=== PATIENT | male | born 1935 | race Hispanic/Latino ===

== ENCOUNTER 2017-05-03 15:12 | Outpatient (CLI) | payer MEDICARE, OTHER ==
--- NOTE | 2017-05-03 20:21 | ULT ---
CAROTID DOPPLER: 05/03/17 Ultrasound doppler study performed with extracranial carotid arteries. Color doppler with spectral a nalysis and velocity recordings obtained. HISTORY: History of stenosis. Comparison made carotid duplex study of 12/04/15. That exam revealed increased velocities in the right ICA at 177 cm/s. FINDINGS: Ultrasound images show diffuse intimal thickening and moderate echogenic plaque throughout both extr acranial carotid systems, more prominent in the right bulb and proximal ICA. Velocities in the right ICA recorded at 112 cm/s today which does not indicate hemodynamically sign ificance. Normal velocities in the left ICA recorded at 73 cm/s systolic. Vertebrals show antegrade flow. IMPRESSION: Intimal thickening and moderate echogenic plaque seen bilaterally. No evidence of hemodynamically si gnificant stenosis identified on today's velocity studies. POS: [facility]
== END 2017-05-03 15:13 | disposition home or self-care (01) ==
LOC: ULT 15:12
PROVIDERS: ATTEND Psychiatry & Neurology Neurology
DX: I65.22 Occlusion and stenosis of left carotid artery (principal); I25.119 Atherosclerotic heart disease of native coronary artery with unspecified angina pectoris; G44.1 Vascular headache, not elsewhere classified
CPT/HCPCS: 93880

== ENCOUNTER 2017-05-09 04:06 | Inpatient (IN) | payer MEDICARE, OTHER ==
[2017-05-09 04:52] LABS: #Eosinphils 0.2 thou/uL (0.0-0.7); #Lymphocytes 0.9 thou/uL (1.20-3.40); #Monocytes 0.7 thou/uL (0.11-0.59); #Neutrophils 3.1 thou/uL (1.40-6.50); %Basophils 0.9 % (0.0-1.0); %Eosinophils 3.7 % (0.0-10.0); %Lymphocytes 18.7 % (21.0-51.0); %Monocytes 13.7 % (0.0-10.0); Hematocrit 38.9 % (42.0-52.0); Mean Platelet Volume 6.6 fL (7.4-10.4); Red Blood Cell (RBC) Count 3.99 mill/uL (4.70-6.10)
[2017-05-09 05:10] LABS: ALT (SGPT) 24 U/L (8-55); AST (SGOT) 36 U/L (5-34); Alkaline Phosphatase 63 U/L (40-150); Anion Gap 6 mmol/L (10-20); BUN (Urea Nitrogen) 6 mg/dL (8.4-25.7); Bilirubin, Total 0.8 mg/dL (0.2-1.2); CK (CPK) 147 U/L (30-200); Calc. Creatinine Clearance 0 mL/min (70-130); Calcium 9.4 mg/dL (7.8-10.44); Carbon Dioxide 26 mmol/L (23-31); Chloride 96 mmol/L (98-107); Estimated GFR-MDRD 52; Globulin 2.5 g/dL (2.4-3.5); Protein, Total 6.2 g/dL (5.8-8.1)
[2017-05-09 06:03] LABS: Bilirubin Negative (Negative); Blood, Urine Negative (Negative); Glucose, Urine (Dipstick) Negative (Negative); Ketone, Urine Negative (Negative); Nitrite Negative (Negative); Protein, Urine (Dipstick) Negative (Neg-Trace); Urobilinogen 0.2 mg/dL (0.2-1.0)
[2017-05-09 07:04] LABS: Sodium, Urine 35 mmol/L (Not Available)
[2017-05-09] MEDS ORDERED: HYDROcodone/Acetaminophen 5/325 mg Tablet PO PRN (09:43)
[2017-05-09] MEDS ORDERED: Ondansetron HCl/PF 4 MG/2 ML Vial IVP PRN (09:43)
[2017-05-09] MEDS ORDERED: Calcium Carbonate 500 MG ChewTAB PO PRN (09:43)
[2017-05-09] MEDS ORDERED: Acetaminophen 325 MG TAB PO PRN (09:43)
[2017-05-09] MEDS ORDERED: Zolpidem Tartrate 5 MG TAB PO PRN (09:43)
[2017-05-09] MEDS ORDERED: Guaifenesin DM 100-10/5 ML UDCUP PO PRN (09:43)
[2017-05-09] MEDS ORDERED: Milk Of Magnesia 30 ML UDCUP PO PRN (09:43)
[2017-05-09] MEDS ORDERED: Sodium Chloride 0.9% 1,000 ML IV SCH (09:45)
[2017-05-09] MEDS ORDERED: Ferrous Sulfate 325 MG TAB PO SCH (10:00)
[2017-05-09] MEDS ORDERED: Cyclobenzaprine 10 MG TAB PO PRN (10:08)
--- NOTE | 2017-05-09 10:19 | CT ---
PRELIMINARY REPORT/[facility]/EMERGENCY AFTER HOURS PROCEDURE: EXAM: CT Angiography Abdomen and Pelvis With Runoff to the Lower Extremities With Intravenous Contrast CLINICAL HISTORY: 82 years old, male; Pain; Abdominal pain; Localized; Lower; Prior surgery; Patient HX: Er 3; 82 yo m . Pmh cad S/P cabg x5 vz, pvd S/P stent in right leg, and throat ca. Presents with calf pain and cramping upon exertion for 4 days. Reports subjective fever/chills during same time course. Bruise l jr lesion presented on right medial heel near the start of calf pain. Was diagnosed with diverticul itis 4 days ago by pcp. Started on abx and clear liquid diet. Also reports difficulty urinating and const ipation. Constipation, TECHNIQUE: Axial computed tomographic angiography images of the abdomen, pelvis and lower extremities with intr avenous contrast using CT angiography protocol. Coronal reformatted images were created and reviewed. CONTRAST: 100 mL of isovue 370 administered intravenously. COMPARISON: No relevant prior studies available. FINDINGS: Lower thorax: No acute findings. VASCULATURE: Aorta: Infrarenal aortic aneurysm sac measuring up to 5.3 x 4.2 cm with aortobiiliac stent graft. Mo derate diffuse atherosclerotic changes. No dissection. Celiac trunk and mesenteric arteries: Calcified plaque in the proximal celiac artery resulting in mo derate to severe stenosis. Diffuse mostly calcified plaque along the SMA with moderate to severe marlen nosis proximally. Renal arteries: Bilateral renal artery origin calcifications with mild stenosis, greater on the left . Right iliac arteries: No acute findings. No occlusion or significant stenosis. Right femoral/popliteal arteries: Diffuse right femoral artery atherosclerotic changes with multifoc al mild to moderate stenoses. Occlusion of the popliteal artery. Right calf/foot arteries: No definite flow seen within the right anterior tibial artery with minimal intermittent opacification along the dorsalis pedis. Reconstitution of a diminutive posterior tibia l artery with multifocal calcifications and luminal irregularities and opacification through the ank le. Reconstitution of the peroneal artery with multifocal luminal irregularities opacification to t he level of the ankle. Left iliac arteries: No acute findings. No occlusion or significant stenosis. Left femoral/popliteal arteries: Diffuse femoropopliteal atherosclerotic changes with multifocal mil d to moderate stenoses. Left calf/foot arteries: Occlusion of the left anterior tibial artery proximally with reconstitution of the dorsalis pedis distally. Occlusion of the posterior tibial artery with minimal intermittent opacification distally, not visualized beyond the hindfoot. Patient peroneal artery with luminal irr egularities. ABDOMEN: Liver: Unremarkable. Gallbladder and bile ducts: Cholelithiasis. Distended gallbladder. Dilated common bile duct measurin g up to 13 mm. Mild central intrahepatic biliary ductal dilatation. Pancreas: Mild ductal prominence in the head and neck. Relatively atrophic. Otherwise unremarkable. Spleen: Normal. Adrenals: Normal. Kidneys and ureters: Unremarkable. Stomach and bowel: Distal gastrectomy. Moderate amount of stool throughout the colon. Otherwise unre markable. No focal inflammatory changes or evidence of obstruction. Appendix: No findings to suggest acute appendicitis. PELVIS: Bladder: Normal. No mass. Reproductive: Unremarkable. ABDOMEN, PELVIS and LOWER EXTREMITIES: Intraperitoneal space: Normal. No significant fluid collection. No free air. Bones/joints: No acute fracture. No dislocation. Soft tissues: Unremarkable. Lymph nodes: Unremarkable. No enlarged lymph nodes. IMPRESSION: 1. No definite acute findings. 2. Cholelithiasis. Biliary ductal dilatation. 3. Occluded right popliteal artery with severe atherosclerotic changes of both lower legs as above. The findings were verbally communicated via telephone conference with MERLE PIERSON at 6:36 AM C DT on 05/09/2017. Thank you for allowing us to participate in the care of your patient. Dictated and Authenticated by: Narinder Schultz MD 05/09/2017 6:42 AM Central Time ([place] \T\ [place]) FINAL REPORT CT ANGIOGRAM OF CHEST CT ANGIOGRAM OF ABDOMEN CT ANGIOGRAM OF PELVIS BILATERAL LOWER EXTREMITY RUNOFF: Date: 05/09/17 HISTORY: CABG x5. Peripheral vascular disease. Right leg stent. Throat cancer. Calf pain and cramping upon ex ertion x4 days. Diverticulitis. COMPARISON: 01/11/17. TECHNIQUE: Chest, abdomen, and pelvic CT angiogram, as well as bilateral lower extremity runoff performed in th e axial plane. Sagittal and coronal three-dimensional reformatted images are submitted for interpret ation. FINDINGS: This report is in agreement with the preliminary report from [facility]. There is no evidence of aortic di ssection. There is an endovascular stent (aortobiiliac) which is described in the preliminary report by [facility]. Comparison made with prior examination does not demonstrate any significant change. There is stable atherosclerotic disease involving the abdominal vasculature, pelvic vasculature, as well a s bilateral lower extremity vessels. There is occlusion of the right popliteal artery. Additional ar eas of significant vascular stenosis in the right and left lower extremity arterial system is noted and has been described in the preliminary report by Sandhy[facility]. Gallbladder is distended with evidence of cholelithiasis. Common bile duct is distended, measuring 13.0 mm. There is mild pancreatic ductal pr ominence. Moderate amount of fecal material in the colon, nonspecific. POS: [facility]
[2017-05-09] MEDS ORDERED: Ibuprofen 600 MG TAB PO SCH (10:30)
[2017-05-09] MEDS ORDERED: Cyclobenzaprine 10 MG TAB PO SCH (10:30)
--- NOTE | 2017-05-09 10:39 | HP ---
ADMITTING PHYSICIAN: Calixto Germain M.D. CHIEF COMPLAINT: Bilateral leg pain. HISTORY OF PRESENT ILLNESS: The patient is a pleasant 82-year-old gentleman with history of coronar y artery disease, peripheral vascular disease and throat cancer. The patient and his report th at approximately 4 days ago he began to experience cramping and pain in his calves bilaterally. The y do report that he has been participating in physical rehab including walking on treadmill and usin g a stationary bike as well as other various exercises. He does also report subjective chills and c onstitutional symptoms consisting with possible viral infection. He denies chest pain, shortness of breath, nausea, vomiting. He does report having chronic constipation. He has recently been treate d with antibiotics for diverticulitis. No other complaints at this time. REVIEW OF SYSTEMS: The following complete review of systems was negative, unless otherwise mentioned in the HPI or below: Constitutional: Weight loss or gain, ability to conduct usual activities. Skin: Rash, itching. Eyes: Double vision, pain. ENT/Mouth: Nose bleeding, neck stiffness, pain, tenderness. Cardiovascular: Palpitations, dyspnea on exertion, orthopnea. Respiratory: Shortness of breath, wheezing, cough, hemoptysis, fever or night sweats. Gastrointestinal: Poor appetite, abdominal pain, heartburn, nausea, vomiting, constipation, or diarrhea. Genitourinary: Urgency, frequency, dysuria, nocturia. Musculoskeletal: Pain, swelling. Neurologic/Psychiatric: Anxiety, depression. Allergy/Immunologic: Skin rash, bleeding tendency. PAST MEDICAL HISTORY: Hypothyroidism, coronary artery disease, peripheral vascular disease, BPH, dy slipidemia, hypertension, esophageal CA, TIA. PAST SURGICAL HISTORY: Significant for coronary artery bypass graft x5, left foot surgery, left wri st surgery, abdominal stent placement, appendectomy, abdominal aneurysm repair, pacemaker placement. PSYCHIATRIC HISTORY: Consistent with anxiety. SOCIAL HISTORY: Lives at home with his family. The patient denies alcohol use, drug use. No smoki ng. FAMILY HISTORY: Noncontributory to this case. ALLERGIES: No known drug allergies. HOME MEDICATIONS: Cranberry concentrate, aspirin 325 mg every day, iron 325 mg once a day, finaster yecenia 5 mg every day, tamsulosin 0.4 mg every day, gabapentin 300 mg daily, lisinopril 10 mg every day , vitamin D supplementation and levothyroxine 25 mg every day. LABORATORY/IMAGES: Chest CT shows no dissection, no aneurysm of the aorta. CTA of the abdomen show s aorta with runoff, severe chronic appearing vasculopathy with collateral flow distal to the obstru cted right popliteal and left peroneal vessels, no vascular leak or dissection. Chest CT shows aort a with no dissection, no aneurysm. LABS: Urine sodium 35, urine creatinine less than 20. The urine is yellow and clear with leukocyte s negative, the urine nitrite negative, urine ketones negative. CPK 147. BMP shows sodium of 124, potassium 4.2, chloride 96, CO2 26, BUN 6, creatinine 1.33 with a glucose of 97, AST 36, ALT 24. CB C shows a white count of 5.0, hemoglobin 12.9, hematocrit 38.9, platelets 122. ASSESSMENT AND PLAN: 1. Hypoosmolality and hyponatremia. 2. Myalgias. 3. Diverticulitis. 4. Viral syndrome. PLAN: The patient will be admitted. We will treat him with normal saline and follow serial labs fo r improvement of his hyponatremia. We will add muscle relaxers and anti-inflammatories for the myal gias as patient's CTA with runoff is essentially negative. We will control the patient's blood pres sure starting with his home regimen and make changes as needed.
--- NOTE | 2017-05-09 11:12 | CON ---
DATE OF CONSULTATION: 05/09/2017 REASON FOR CONSULTATION: Hyponatremia. HISTORY OF PRESENT ILLNESS: This is a very pleasant 82-year-old gentleman who presented to the hospital with bilateral leg pain. The patient was noted to have a sodium of 124. The patient denies any nausea or vomiting, but has had abdominal pain and has been treated for diverticulitis. The patient has had no hyponatremia before and denied drinking excessively. PAST MEDICAL HISTORY: Hypothyroidism, coronary artery disease, peripheral vascular disease, BPH, hyperlipidemia, hypertension, esophageal cancer, TIA. PAST SURGICAL HISTORY: History of CABG, left foot surgery, appendectomy, abdominal stent, pacemaker. SOCIAL HISTORY: No alcohol or drug use. FAMILY HISTORY: Negative for ESRD. HOME MEDICATIONS: List reviewed. HOSPITAL MEDICATIONS: List reviewed. ALLERGIES: Reviewed. REVIEW OF SYSTEMS: Fifteen point review of systems was performed and negative except positives noted above. GENERAL: Weakness- HEAD: Headache- NECK: No swelling or lumps. NOSE: No epistaxis or discharge. EYES: No diplopia or pain. RESPIRATORY: Dyspnea- CARDIOVASCULAR: Chest pain- GASTROINTESTINAL: Nausea- /STAFF VETERINARIAN: Hematuria- MUSCULOSKELETAL: No joint pain. NEUROPSYCHIATIC SYSTEMS: No suicidal ideation. No ideation. SKIN: Denies any rash or ulcer. CONSTITUTIONAL: No fever or chills. PHYSICAL EXAMINATION: GENERAL: Patient is awake, alert. VITAL SIGNS: Afebrile, pulse 75, breathing at 16, blood pressure was 140/70. Awake, alert, in no acute distress. GENERAL APPEARANCE AND MENTAL STATUS: Fair. HEAD/NECK: Normocephalic. Atraumatic. EYES: EOMI. No deformity. EARS: Clear. No ulcers. NOSE: Intact. No lesions. MOUTH: Clear. No discharge. THROAT: Clear. No exudate. LUNGS: Clear. No crackles. CARDIAC: S1, S2. No rub. ABDOMEN: Benign. BS+. GENITALIA/RECTUM: Thompson absent. BACK/EXTREMITIES: Edema 0+ Ulcer- NEUROLOGICAL: Alert and motor intact. SKIN: Rash- Bruise- LYMPHATICS: Edema- Ulcer- LABORATORY: Sodium of 124, creatinine is 1.3. ASSESSMENT AND RECOMMENDATIONS: 1. Chronic kidney disease stage 3, stable. 2. Hyponatremia, could be syndrome of inappropriate antidiuretic hormone secretion due to malignancy. I would recommend fluid restriction stop IV fluids. We will recheck stat sodium as well as urine and serum osmolality. MTDD
[2017-05-09] MEDS ORDERED: Morphine 2 MG/ML SYRINGE SLOW IVP PRN ×2 (12:15→12:16)
[2017-05-09 12:26] LABS: Anion Gap 4 mmol/L (10-20); BUN (Urea Nitrogen) 7 mg/dL (8.4-25.7); Calc. Creatinine Clearance 38 mL/min (70-130); Calcium 9.3 mg/dL (7.8-10.44); Carbon Dioxide 29 mmol/L (23-31); Chloride 95 mmol/L (98-107); Estimated GFR-MDRD 54
[2017-05-09] MEDS: Lorazepam 0.5 MG TAB PO PRN (13:01)
[2017-05-09] MEDS ORDERED: ISOVUE-370 76%-LOCM 1 ML ONE (15:00)
[2017-05-09] MEDS ORDERED: hydrALAZINE 20 MG/ML VIAL SLOW IVP PRN (15:14)
[2017-05-09] MEDS ORDERED: Ibuprofen 600 MG TAB PO PRN (16:00)
--- NOTE | 2017-05-09 19:45 | CON ---
DATE OF CONSULTATION: 05/09/2017 HISTORY OF PRESENT ILLNESS: An 82-year-old gentleman that I have followed for peripheral arterial d isease for many years, the last being seen about 2 months ago. The patient had been complaining of constipation and abdominal discomfort and was referred to Dr. Mohan. He has had evidently started o n some antibiotics about a week ago that left him nauseated with inability to keep liquids down. He awakened this morning with inability to bear weight on his legs due to discomfort in both calves. He was seen in the emergency room, where a CT angiogram was obtained. He was noted to have sodium o f 124, which was not consistent with his prior sodium. Workup is being performed in that regards. The patient does complain of discomfort in his feet with walking, but up until the past week or two, he was doing rehabilitation on a daily basis, walking on a treadmill and was walking several blocks at this time with his . PAST MEDICAL HISTORY: Includes carotid artery disease, coronary artery disease, dyslipidemia, perip heral arterial disease, abdominal aortic aneurysm. PAST SURGICAL HISTORY: Includes vagotomy and antrectomy in 1968, lymph node dissection of the left neck and radiation therapy in 2002, appendectomy, tonsillectomy, previous heel surgery, atherectomy and [employer], left SFA and peroneal in 07/2010, stenting of his LAD in 2004, coronary bypass graft 2014, endovascular aneurysm repair in 2014, pacemaker 2016 and stent to circumflex in 2015. 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 PHYSICAL EXAMINATION: GENERAL: Alert, cooperative gentleman, in no distress. NECK EXAMINATION: High pitched right carotid bruit. CARDIAC EXAMINATION: Regular rate and rhythm, no murmurs. LUNGS: Clear to auscultation. ABDOMEN: Soft, nontender. EXTREMITIES: He has palpable femoral pulses with no palpable distal pulses. He has a good right po sterior tibial signal and the left peroneal signal consistent with his previous office examination. Feets are both warm with pink and capillary refill and pink toes. He does have some ecchymosis ethel ng the posterior aspect of both medial malleoli. His calves are soft. All compartments is being so ft with some mild tenderness to deep palpation posteriorly. ASSESSMENT AND PLAN: 1. Stable peripheral artery disease 2. Ecchymosis posterior to the medial malleolus with unchanged platelet count and no evidence of tr auma. 3. Hyponatremia. I agree with treatment of his hyponatremia; and hopefully, this will improve his extremity symptoms as I do not see any change in his peripheral arterial disease from prior examinations.
[2017-05-09] MEDS ORDERED: FLU VACC TS2017-18 (>65YR) 0.5 ML SYRINGE IM ONE (21:00)
[2017-05-09] MEDS: Amlodipine 10 MG TAB PO SCH (21:52)
[2017-05-09] MEDS: Finasteride 5 MG TAB PO SCH (21:53)
[2017-05-09] MEDS: Nortriptyline HCl 25 MG CAP PO SCH (21:54)
[2017-05-09] MEDS: Tamsulosin HCl 0.4 MG CAP PO SCH (21:54)
[2017-05-10 06:41] LABS: Anion Gap 9 mmol/L (10-20); BUN (Urea Nitrogen) 10 mg/dL (8.4-25.7); Calc. Creatinine Clearance 39 mL/min (70-130); Carbon Dioxide 24 mmol/L (23-31); Chloride 97 mmol/L (98-107); Estimated GFR-MDRD 55
[2017-05-10] MEDS: Aspirin 81 mg Enteric Coated Tablet PO SCH (08:17)
[2017-05-10] MEDS: Lisinopril 10 MG TAB PO SCH (08:17)
[2017-05-10] MEDS: Clopidogrel Bisulfate 75 MG TAB PO SCH (08:18)
[2017-05-10] MEDS: Ubidecarenone 50 MG CAP PO SCH (08:18)
[2017-05-10] MEDS: Cyanocobalamin (Vitamin B-12) 1,000 MCG TAB PO SCH (08:18)
[2017-05-10] MEDS ORDERED: Non-Formulary Item 1 EACH (Cyanocobalamin (Vitamin B-12) [Vitamin B-12] 1,000 MCG) PO SCH (09:00)
[2017-05-10] MEDS ORDERED: Non-Formulary Item 1 EACH (Ubidecarenone [Co Q-10] 200 MG) PO SCH (09:00)
[2017-05-10] MEDS ORDERED: Levothyroxine Sodium 25 MCG TAB PO SCH (09:00)
[2017-05-10] MEDS ORDERED: Lisinopril 5 MG TAB PO SCH (09:00)
--- NOTE | 2017-05-10 11:28 | PDOC.PN ---
- Subjective Encounter Start Date: 05/10/17 Encounter Start Time: 11:26 Patient seen at bedside. No overnight events. Still having mild cramps. - Objective Resuscitation Status: Resuscitation Status FULL:Full Resuscitation MAR Reviewed: Yes Vital Signs & Weight: Vital Signs (12 hours) Temp Pulse Resp BP BP Pulse Ox 05/10/17 08:17 149/72 H 05/10/17 07:50 97.8 F 76 16 149/72 H 97 05/10/17 04:00 98.8 F 65 18 125/63 95 Weight Admit Weight 131 lb Weight 132 lb I&O: 05/09/17 05/10/17 05/11/17 06:59 06:59 06:59 Intake Total 880 Output Total 1575 Balance -695 Result Diagrams: 05/09/17 04:36 05/10/17 05:43 Phys Exam - Physical Examination Constitutional: NAD HEENT: moist MMs Neck: no JVD Respiratory: no rales Cardiovascular: RRR Gastrointestinal: soft Musculoskeletal: pulses present Neurological: moves all 4 limbs Psychiatric: A&O x 3 Deviation from normal: Pulses present, mild discoloration around medial malleolus Dx/Plan (1) Hyponatremia Code(s): E87.1 - HYPO-OSMOLALITY AND HYPONATREMIA Status: Acute (2) PVD (peripheral vascular disease) Code(s): I73.9 - PERIPHERAL VASCULAR DISEASE, UNSPECIFIED Status: Chronic (3) CAD (coronary artery disease) Code(s): I25.10 - ATHSCL HEART DISEASE OF [place] CORONARY ARTERY W/O ANG PCTRS Status: Chronic (4) BPH (benign prostatic hyperplasia) Code(s): N40.0 - BENIGN PROSTATIC HYPERPLASIA WITHOUT LOWER URINRY TRACT SYMP Status: Chronic - Plan cont current plan of care, out of bed/ambulate * Continue with fluid restriction. Monitor Na+ levels. Appreciate Nephrology input * Restart Statin and Coq-10 * Appreciate [facility] input. Stable PAD. Pain possibly from Na+ levels. * Daily labs * Transfer to [facility]
--- NOTE | 2017-05-10 17:21 | PRG ---
DATE OF SERVICE: 05/10/2017 SUBJECTIVE: This 82-year-old gentleman being seen for acute kidney injury and hypernatremia. Patie nt denies any nausea, vomiting or chest pain. PHYSICAL EXAMINATION: GENERAL: Patient is awake, alert. VITAL SIGNS: Afebrile, pulse 72, breathing at 16, blood pressure 133/61. GENERAL APPEARANCE AND MENTAL STATUS: Fair. HEAD/NECK: Normocephalic. Atraumatic. EYES: EOMI. No deformity. EARS: Clear. No ulcers. NOSE: Intact. No lesions. MOUTH: Clear. No discharge. THROAT: Clear. No exudate. LUNGS: Clear. No crackles. CARDIAC: S1, S2. No rub. ABDOMEN: Benign. BS+. GENITALIA/RECTUM: Thompson absent. BACK/EXTREMITIES: Edema 0+ Ulcer- NEUROLOGICAL: Alert and motor intact. SKIN: Rash- Bruise- LYMPHATICS: Edema- Ulcer- LABORATORY DATA: Show sodium 126. ASSESSMENT AND PLAN: 1. Hyponatremia due to syndrome of inappropriate antidiuretic hormone secretion. Continue fluid re striction. 2. Hypertension, stable. 3. Medications based on glomerular filtration rate are appropriate. No indication for hypertonic s nathaly. We will follow the patient closely. 4. Chronic kidney disease stage 3, stable.
[2017-05-10] MEDS: Amlodipine 10 MG TAB PO SCH (20:24)
[2017-05-10] MEDS: Finasteride 5 MG TAB PO SCH (20:25)
[2017-05-10] MEDS: Nortriptyline HCl 25 MG CAP PO SCH (20:25)
[2017-05-10] MEDS: Tamsulosin HCl 0.4 MG CAP PO SCH (20:25)
[2017-05-10] MEDS: Lorazepam 0.5 MG TAB PO PRN (20:25)
[2017-05-11] MEDS ORDERED: Levothyroxine Sodium 25 MCG TAB PO SCH (06:00)
[2017-05-11 06:50] LABS: ALT (SGPT) 19 U/L (8-55); AST (SGOT) 24 U/L (5-34); Alkaline Phosphatase 63 U/L (40-150); Anion Gap 9 mmol/L (10-20); BUN (Urea Nitrogen) 16 mg/dL (8.4-25.7); Bilirubin, Total 0.6 mg/dL (0.2-1.2); Calc. Creatinine Clearance 32 mL/min (70-130); Calcium 9.3 mg/dL (7.8-10.44); Carbon Dioxide 27 mmol/L (23-31); Chloride 97 mmol/L (98-107); Estimated GFR-MDRD 39; Globulin 2.5 g/dL (2.4-3.5); Protein, Total 5.9 g/dL (5.8-8.1)
[2017-05-11] MEDS: Clopidogrel Bisulfate 75 MG TAB PO SCH (09:36)
[2017-05-11] MEDS: Ubidecarenone 50 MG CAP PO SCH (09:37)
[2017-05-11] MEDS: Aspirin 81 mg Enteric Coated Tablet PO SCH (09:37)
[2017-05-11] MEDS: Cyanocobalamin (Vitamin B-12) 1,000 MCG TAB PO SCH (09:37)
[2017-05-11] MEDS: Lisinopril 10 MG TAB PO SCH ×3 (09:38→09:47)
--- NOTE | 2017-05-11 10:16 | PDOC.PN ---
- Subjective Encounter Start Date: 05/11/17 Encounter Start Time: 10:14 Patient seen at bedside. No overnight events. No new complaints. - Objective Resuscitation Status: Resuscitation Status FULL:Full Resuscitation MAR Reviewed: Yes Vital Signs & Weight: Vital Signs (12 hours) Temp Pulse Resp BP BP BP BP 05/11/17 09:47 97/55 L 05/11/17 09:44 101/52 L 97/55 L 05/11/17 08:00 97.6 F 80 16 95/54 L 05/11/17 04:00 99.0 F 80 16 104/56 L Pulse Ox 05/11/17 09:47 05/11/17 09:44 05/11/17 08:00 95 05/11/17 04:00 95 Weight Admit Weight 131 lb Weight 144 lb 1.6 oz I&O: 05/10/17 05/11/17 05/12/17 06:59 06:59 06:59 Intake Total 880 1040 Output Total 1575 1225 Balance -695 -185 Result Diagrams: 05/09/17 04:36 05/11/17 05:56 Phys Exam - Physical Examination Constitutional: NAD HEENT: moist MMs Neck: no JVD Respiratory: no rales Cardiovascular: no significant murmur Gastrointestinal: soft Musculoskeletal: pulses present Neurological: moves all 4 limbs Psychiatric: A&O x 3 Dx/Plan (1) Hyponatremia Code(s): E87.1 - HYPO-OSMOLALITY AND HYPONATREMIA Status: Acute (2) PVD (peripheral vascular disease) Code(s): I73.9 - PERIPHERAL VASCULAR DISEASE, UNSPECIFIED Status: Chronic (3) CAD (coronary artery disease) Code(s): I25.10 - ATHSCL HEART DISEASE OF [place] CORONARY ARTERY W/O ANG PCTRS Status: Chronic (4) BPH (benign prostatic hyperplasia) Code(s): N40.0 - BENIGN PROSTATIC HYPERPLASIA WITHOUT LOWER URINRY TRACT SYMP Status: Chronic - Plan cont current plan of care, out of bed/ambulate * Continue with fluid restriction. * Muscle cramps and lower extremity pain was most likely secondary to hyponatremia. * F/U with nephrology next week. (BMP on Tuesday) *
--- NOTE | 2017-05-11 12:09 | PRG ---
DATE OF SERVICE: 05/11/2017 SUBJECTIVE: An 82-year-old gentleman being seen for hyponatremia. The patient denies any nausea, vomiting or chest pain. PHYSICAL EXAMINATION: GENERAL: Patient is awake, alert. VITAL SIGNS: Afebrile, pulse 80, breathing at 16, blood pressure 101/52. OBJECTIVE: See above. Awake, alert, in no acute distress. GENERAL APPEARANCE AND MENTAL STATUS: Fair. HEAD/NECK: Normocephalic. Atraumatic. EYES: EOMI. No deformity. EARS: Clear. No ulcers. NOSE: Intact. No lesions. MOUTH: Clear. No discharge. THROAT: Clear. No exudate. LUNGS: Clear. No crackles. CARDIAC: S1, S2. No rub. ABDOMEN: Benign. BS+. GENITALIA/RECTUM: Thompson absent. BACK/EXTREMITIES: Edema 0+ Ulcer- NEUROLOGICAL: Alert and motor intact. SKIN: Rash- Bruise- LYMPHATICS: Edema- Ulcer- LABORATORY: Sodium is 129, creatinine 1.6. ASSESSMENT AND RECOMMENDATIONS: 1. Acute kidney injury with chronic kidney disease, recheck labs Tuesday decrease MADELINE to 5 mg.. 2. Hyponatremia due to excessive fluid intake and syndrome of inappropriate antidiuretic hormone secretion, stable. 3. Hypertension, stable. 4. Medications based on GFR are appropriate. 5. Hypertension. Decrease Lisinopril to 5 mg. As BP is less than 100. Would recommend decreasing the lisinopril to 5 mg daily. MTDD
[2017-05-11 12:46] VITALS: BP 101/57; TEMP 98
--- NOTE | 2017-05-11 16:49 | DIS ---
DATE OF ADMISSION: 05/09/2017 DATE OF DISCHARGE: 05/11/2017 DISCHARGE DISPOSITION: Home. DISCHARGE FOLLOWUP: With Dr. Clements in 1 week. He is to have blood work on 05/13/2017. DISCHARGE DIAGNOSES: 1. Bilateral leg pain and cramping, secondary to hyponatremia. 2. Hyponatremia, secondary to syndrome of inappropriate antidiuretic hormone secretion. 3. Hypertension. 4. History of peripheral artery disease. 5. Hypothyroidism. 6. Benign prostatic hypertrophy. DISCHARGE MEDICATIONS: 1. Aspirin 81 mg p.o. daily. 2. Plavix 75 mg p.o. daily. 3. B12 supplements. 4. Ferrous sulfate 325 mg p.o. every 7 days. 5. Finasteride 5 mg p.o. at bedtime. 6. Gabapentin 300 mg p.o. daily. 7. Lorazepam 0.5 mg p.o. b.i.d. 8. Zestril 5 mg p.o. daily. 9. Rosuvastatin 20 mg p.o. daily. 10. Tamsulosin 0.4 mg p.o. at bedtime. 11. Amlodipine 5 mg p.o. at bedtime. 12. Please note that lisinopril has been decreased to 5 mg p.o. daily. INPATIENT CONSULTATIONS: 1. Dr. Watt, Cardiovascular Surgery. 2. Dr. Clements, Nephrology. INPATIENT RADIOGRAPHIC EXAMINATIONS: 1. Aorta with runoff CTA, which revealed no acute findings. However, he did have an occluded right popliteal artery with severe atherosclerotic changes as well as reconstitution of a diminutive post erior tibial artery with multifocal calcifications, luminal irregularities, and opacification throug hout the ankle. 2. CT, dissection, which revealed no definitive acute findings. BRIEF HOSPITAL COURSE: Mr. Francisco Peoples is an 82-year-old male with a history of coronary artery d isease and peripheral vascular disease, who presented to the emergency room complaining of bilateral leg pain. The patient was then subsequently admitted to the telemetry floor where he was monitored . Upon routine evaluation, it was noted that the patient had a sodium of 124. At that time, the pa pollo was evaluated by Nephrology, who stated this is most likely secondary to syndrome of inappropr iate antidiuretic hormone or SIADH. He was placed on fluid restriction and his sodium improved. In regard to his claudication-like symptoms, he was evaluated by Vascular Surgery, who stated that his peripheral vascular disease and peripherial arterial disease are stable and his symptoms are most l ikely secondary to metabolic abnormalities. The patient's sodium did improve, and as his sodium imp roved, his symptoms began to improve as well. He does not walk with any kind of discomfort. His so dium is 129. He has been cleared by Nephrology for discharge later today. We will follow up with nicole wynn in 2 days and then a subsequent followup in the diesel motor mechanic's office later next week. The patient was advised to have a fluid restriction of 2 liters per day. He is feeling much better and he is clinically appropriate for discharge home, and will be discharged home later today in stable c ondition. DISCHARGE DIET: Heart healthy. ACTIVITY: As tolerated. RESTRICTIONS: He does have fluid restriction of 2 liters per day. CODE STATUS: Full code. ALLERGIES: No known drug allergies. I explained all of these to the patient at bedside. He is agreeable to the plan of discharge. All questions have been answered. The patient's total discharge time 34 minutes.
[2017-05-12] MEDS ORDERED: Lisinopril 5 MG TAB PO SCH (09:00)
== END 2017-05-11 15:15 | disposition home or self-care (01) | DRG 645 ==
LOC: ERS 04:06 → ERHOLD 07:04 → 2NO 11:17
PROVIDERS: ADMIT Family Medicine; ATTEND Family Medicine
DX: E22.2 Syndrome of inappropriate secretion of antidiuretic hormone (principal); N18.3 Chronic kidney disease, stage 3 (moderate); I73.9 Peripheral vascular disease, unspecified; I12.9 Hypertensive chronic kidney disease with stage 1 through stage 4 chronic kidney disease, or unspecified chronic kidney disease; E03.9 Hypothyroidism, unspecified; N40.0 Benign prostatic hyperplasia without lower urinary tract symptoms; Z95.1 Presence of aortocoronary bypass graft; Z95.0 Presence of cardiac pacemaker; Z86.73 Personal history of transient ischemic attack (TIA), and cerebral infarction without residual deficits; E78.5 Hyperlipidemia, unspecified; I25.10 Atherosclerotic heart disease of native coronary artery without angina pectoris
CPT/HCPCS: 36415; 71275; 75635; 80048; 80053; 81003; 82550; 82570; 83735; 83930; 83935; 84300; 85025; 93005; 96360; 96361; A4216

== ENCOUNTER 2017-07-14 17:01 | Emergency (ER) | payer MEDICARE, OTHER ==
[2017-07-14 18:05] LABS: #Eosinphils 0.2 thou/uL (0.0-0.7); #Lymphocytes 0.9 thou/uL (1.20-3.40); #Monocytes 0.3 thou/uL (0.11-0.59); #Neutrophils 2.1 thou/uL (1.40-6.50); %Basophils 0.6 % (0.0-1.0); %Eosinophils 4.9 % (0.0-10.0); %Lymphocytes 25.9 % (21.0-51.0); %Monocytes 7.1 % (0.0-10.0); %Neutrophils 61.5 % (42.0-75.0); Hemoglobin 12.9 g/dL (14.0-18.0); Mean Corpuscular Hemoglobin 33.1 pg (27.0-31.0); Mean Platelet Volume 6.9 fL (7.4-10.4); Platelet Count 144 thou/uL (130-400); RBC Distribution Width 11.6 % (11.5-14.5); Red Blood Cell (RBC) Count 3.89 mill/uL (4.70-6.10); White Blood Cell (WBC) Count 3.5 thou/uL (4.8-10.8)
[2017-07-14 18:14] LABS: Anion Gap 13 mmol/L (10-20); BUN (Urea Nitrogen) 26 mg/dL (8.4-25.7); Calc. Creatinine Clearance 0 mL/min (70-130); Calcium 9.8 mg/dL (7.8-10.44); Carbon Dioxide 25 mmol/L (23-31); Chloride 100 mmol/L (98-107); Estimated GFR-MDRD 51; Glucose 113 mg/dL (83-110); Potassium 4.8 mmol/L (3.5-5.1); Sodium 133 mmol/L (136-145)
[2017-07-14 18:20] LABS: CKMB 1.8 ng/mL (0-6.6); Troponin I 0.011 ng/mL (< 0.028)
--- NOTE | 2017-07-14 18:58 | RAD ---
PORTABLE CHEST ONE VIEW 07/14/17 at 5:41 p.m. HISTORY: Chest pain. FINDINGS/IMPRESSION: Comparison made with exam of 10/02/16. There is continued elevation of the right hemidiaphragm. There are changes of median sternotomy. A le ft sided pacemaker device is again seen. The heart size is normal. The aorta is tortuous. No confluen t areas of consolidation, pneumothoraces or pleural effusions are seen. POS: [facility]
[2017-07-14 20:41] LABS: CKMB 1.9 ng/mL (0-6.6); Troponin I Less than 0.010 ng/mL (< 0.028)
--- NOTE | 2017-07-16 13:28 | EKG ---
Test Reason : CP Blood Pressure : / mmHG Vent. Rate : 089 BPM Atrial Rate : 090 BPM P-R Int : 152 ms QRS Dur : 076 ms QT Int : 368 ms P-R-T Axes : 021 035 035 degrees QTc Int : 447 ms Electronic atrial pacemaker Confirmed by MITESH JACK ([id number]), acquisition editor RADHA MONSON ([id number]) on 07/16/2017 1:27:34 PM Referred By: Confirmed By:MITESH JACK
== END 2017-07-14 21:11 | disposition home or self-care (01) ==
LOC: ERS 17:01
DX: R07.89 Other chest pain (principal); E03.9 Hypothyroidism, unspecified; I73.9 Peripheral vascular disease, unspecified; N40.0 Benign prostatic hyperplasia without lower urinary tract symptoms; I10 Essential (primary) hypertension; I25.10 Atherosclerotic heart disease of native coronary artery without angina pectoris; I25.2 Old myocardial infarction; F41.9 Anxiety disorder, unspecified
CPT/HCPCS: 36415; 71010; 80048; 82553; 84484; 85025; 93005

== ENCOUNTER 2017-07-25 14:57 | Outpatient (CLI) | payer MEDICARE, OTHER ==
--- NOTE | 2017-07-25 16:40 | RAD ---
MODIFIED BARIUM SWALLOW: Date: 07-25-17 Comparison: None. History: Dysphagia, oropharyngeal phase. Gastroesophageal reflux disease without esophagitis. FINDINGS: A modified barium swallow is performed in conjunction with a speech pathology. The patient is imaged in the lateral projecting swallowing various consistencies of barium. Penetration without aspiration is noted with the thin liquids, most prominent with a large volume swa llow. No evidence for aspiration was seen during this examination. There is residua within the vallec conrda with all consistencies which clears following repeat swallows. IMPRESSION: Penetration with thin liquids. No aspiration seen. POS: [facility]
== END 2017-07-25 14:58 | disposition home or self-care (01) ==
LOC: RAD 14:57
PROVIDERS: ATTEND Internal Medicine Gastroenterology
DX: K21.9 Gastro-esophageal reflux disease without esophagitis (principal); R13.10 Dysphagia, unspecified
CPT/HCPCS: 74230; G8996-GN-CJ; G8997-GN-CJ

== ENCOUNTER → 2017-12-20 | Day surgery (SDC) | payer MEDICARE, OTHER ==
[~2017-12-20] MED LIST: Iopamidol 370 76% 50 ML VIAL FS ONE; Lidocaine 1% (PF) 30 ML VIAL ONE
[2017-12-20 06:43] LABS: #Eosinphils 0.2 thou/uL (0.0-0.7); #Lymphocytes 0.9 thou/uL (1.20-3.40); #Monocytes 0.4 thou/uL (0.11-0.59); #Neutrophils 2.1 thou/uL (1.40-6.50); %Basophils 1.1 % (0.0-1.0); %Eosinophils 6.2 % (0.0-10.0); %Lymphocytes 23.3 % (21.0-51.0); %Monocytes 11.9 % (0.0-10.0); %Neutrophils 57.4 % (42.0-75.0); Hemoglobin 13.1 g/dL (14.0-18.0); Mean Corpuscular HGB CONC 32.4 g/dL (32.0-36.0); Mean Corpuscular Hemoglobin 31.7 pg (27.0-31.0); Mean Corpuscular Volume 97.8 fl (80.0-94.0); Mean Platelet Volume 7.3 fL (7.4-10.4); Platelet Count 123 thou/uL (130-400); RBC Distribution Width 12.3 % (11.5-14.5); Red Blood Cell (RBC) Count 4.14 mill/uL (4.70-6.10); White Blood Cell (WBC) Count 3.6 thou/uL (4.8-10.8)
[2017-12-20 07:03] LABS: Anion Gap 9 mmol/L (10-20); BUN (Urea Nitrogen) 25 mg/dL (8.4-25.7); Calc. Creatinine Clearance 38 mL/min (70-130); Calcium 9.8 mg/dL (7.8-10.44); Carbon Dioxide 26 mmol/L (23-31); Chloride 106 mmol/L (98-107); Estimated GFR-MDRD 53; Glucose 86 mg/dL (83-110); Potassium 4.2 mmol/L (3.5-5.1); Sodium 137 mmol/L (136-145)
--- NOTE | 2017-12-20 08:05 | OP ---
PROCEDURE PERFORMED: Aortogram, left lower extremity runoff, bilateral femoral artery punctures. ANESTHESIA: Local. PROCEDURE IN DETAIL: After prepping and draping, ultrasound guided puncture of the right common femo ral artery was performed. A 5-Citizen [place] dilator and sheath placed and a Contra catheter used to obtain abdominal aortography and left lower extremity runoff. Contrast opacification below the knee was not adequate to make the recommendations and I was unable to pass the Contra catheter over the endovascu lar aneurysm stent graft bifurcation. For this reason, lidocaine was infiltrated into the left groin and the femoral artery was punctured with a micropuncture. Wire was passed into the SFA and this wa s exchanged for a 4-Citizen [place] sheath. Runoff of the left leg was obtained. FINDINGS: The patient has widely patent aortoiliac limbs. External iliac artery in the right is not remarkable as is the origin of the SFA and profunda femoral. On the left leg, external iliac artery appears unremarkable. Origin of the left SFA has mild less than 30% stenosis. The SFA is then holley nt with mild irregularities throughout. The popliteal artery behind the knee has two high grade sten osis with polypoid calcifications present within the vessel. Tibioperoneal trunk is small and severe ly diseased and then it tapers down to about a 90% stenosis where the posterior tibial is occluded an d the peroneal artery is patent, but severely diseased at its origin for about 2-3 cm. Anterior tibi al non-visualized this. Peroneal goes to the ankle and the posterior tibial fills distally, but is a small caliber vessel with diffuse disease. No intervention was entertained. The patient tolerated the procedure well with the fluoro 5 minutes and contrast to 40 mL.
== END ==
LOC: CCL 05:53
PROVIDERS: ATTEND Thoracic Surgery (Cardiothoracic Vascular Surgery)
DX: I70.213 Atherosclerosis of native arteries of extremities with intermittent claudication, bilateral legs (principal); I71.4 Abdominal aortic aneurysm, without rupture; Z79.82 Long term (current) use of aspirin; Z79.899 Other long term (current) drug therapy
CPT/HCPCS: 36140; 36246; 75630; 75710; 76942; 80048; 85025; C1769; J1644; J2001

== ENCOUNTER 2018-01-16 12:20 | Emergency (ER) | payer MEDICARE, OTHER ==
[2018-01-16] MEDS ORDERED: traMADol HCl 50 MG TAB ONE (12:46)
--- NOTE | 2018-01-16 13:03 | RAD ---
LEFT FOOT THREE VIEWS: History: Pain in left fourth and fifth digits. FINDINGS: There are enthesophytes from both posterior and plantar calcaneus. Mild degenerative changes of the i ntertarsal joints and the tarsal metatarsal joints. MTP joints are preserved with mild narrowing of t he first MTP joint. The phalanges appear unremarkable. Prominent arterial calcification noted. IMPRESSION: Enthesophytes from the calcaneus. Mild degenerative changes as described. No fracture or acute osseou s lesion. POS: [facility]
== END 2018-01-16 13:10 | disposition home or self-care (01) ==
LOC: SCSER 12:20
DX: M19.072 Primary osteoarthritis, left ankle and foot (principal); E03.9 Hypothyroidism, unspecified; N40.0 Benign prostatic hyperplasia without lower urinary tract symptoms; E78.5 Hyperlipidemia, unspecified; I10 Essential (primary) hypertension; I25.10 Atherosclerotic heart disease of native coronary artery without angina pectoris; I25.2 Old myocardial infarction; Z86.73 Personal history of transient ischemic attack (TIA), and cerebral infarction without residual deficits; F41.9 Anxiety disorder, unspecified; Z79.82 Long term (current) use of aspirin; Z79.899 Other long term (current) drug therapy

== ENCOUNTER 2018-01-23 09:06 | Outpatient (CLI) | payer MEDICARE, OTHER | END 2018-01-23 09:07 | disposition home or self-care (01) | LOC: BICRAD 09:06 | PROVIDERS: ATTEND Podiatrist | DX: E11.621 Type 2 diabetes mellitus with foot ulcer (principal); L97.529 Non-pressure chronic ulcer of other part of left foot with unspecified severity ==

== ENCOUNTER 2018-02-07 09:15 | Outpatient (CLI) | payer MEDICARE, OTHER | END 2018-02-07 09:16 | disposition home or self-care (01) | LOC: BICRAD 09:15 | PROVIDERS: ATTEND Podiatrist | DX: L97.529 Non-pressure chronic ulcer of other part of left foot with unspecified severity (principal) ==

== ENCOUNTER 2018-06-18 13:28 | Emergency (ER) | payer MEDICARE, OTHER ==
[2018-06-18 14:14] LABS: #Eosinphils 0.1 thou/uL (0.0-0.7); #Lymphocytes 0.8 thou/uL (1.20-3.40); #Monocytes 0.5 thou/uL (0.11-0.59); #Neutrophils 2.7 thou/uL (1.40-6.50); %Eosinophils 2.7 % (0.0-10.0); %Lymphocytes 19.7 % (21.0-51.0); %Monocytes 11.7 % (0.0-10.0); %Neutrophils 64.9 % (42.0-75.0); Hemoglobin 11.2 g/dL (14.0-18.0); Mean Corpuscular HGB CONC 34.1 g/dL (32.0-36.0); Mean Corpuscular Hemoglobin 31.1 pg (27.0-31.0); Mean Corpuscular Volume 91.1 fL (78.0-98.0); Mean Platelet Volume 7.6 fL (7.4-10.4); Platelet Count 110 thou/uL (130-400); RBC Distribution Width 13.6 % (11.5-14.5); Red Blood Cell (RBC) Count 3.59 mill/uL (4.70-6.10); White Blood Cell (WBC) Count 4.2 thou/uL (4.8-10.8)
[2018-06-18 14:25] LABS: PLT Morphology Comment Appears Decreased; RBC Morphology Normal
[2018-06-18 14:29] LABS: ALT (SGPT) 18 U/L (8-55); AST (SGOT) 24 U/L (5-34); Albumin 3.2 g/dL (3.4-4.8); Alkaline Phosphatase 79 U/L (40-150); Anion Gap 10 mmol/L (10-20); BUN (Urea Nitrogen) 26 mg/dL (8.4-25.7); Bilirubin, Total 0.5 mg/dL (0.2-1.2); Calc. Creatinine Clearance 0 mL/min (70-130); Calcium 8.9 mg/dL (7.8-10.44); Carbon Dioxide 24 mmol/L (23-31); Chloride 99 mmol/L (98-107); Estimated GFR-MDRD 69; Globulin 2.8 g/dL (2.4-3.5); Glucose 87 mg/dL (83-110); Potassium 4.2 mmol/L (3.5-5.1); Sodium 129 mmol/L (136-145)
--- NOTE | 2018-06-18 14:56 | RAD ---
CHEST ONE VIEW: INDICATIONS: History of cough. COMPARISON: 07/06/2017 FINDINGS: The lungs are clear. The cardiomediastinal silhouette is within normal limits. No acute osseous abn ormality is evident. A dual-lead pacemaker is unchanged. IMPRESSION: No acute cardiopulmonary abnormalities. POS: [facility]
== END 2018-06-18 15:00 | disposition home or self-care (01) ==
LOC: ERS 13:28
DX: R13.10 Dysphagia, unspecified (principal); R09.89 Other specified symptoms and signs involving the circulatory and respiratory systems; E03.9 Hypothyroidism, unspecified; N40.0 Benign prostatic hyperplasia without lower urinary tract symptoms; E78.5 Hyperlipidemia, unspecified; I10 Essential (primary) hypertension; I25.2 Old myocardial infarction; F41.9 Anxiety disorder, unspecified; Z79.899 Other long term (current) drug therapy; Z79.82 Long term (current) use of aspirin
CPT/HCPCS: 36415; 71045; 80053; 85025

== ENCOUNTER 2018-08-31 14:43 | Emergency (ER) | payer MEDICARE, OTHER ==
--- NOTE | 2018-08-31 15:17 | RAD ---
CHEST 1 VIEW: Date: 08/31/18 HISTORY: Chest pain. COMPARISON: Radiograph dated 06/18/18. FINDINGS: Dual lead pacer is present. There is chronic scarring in the lower lobes. No pneumothorax. No effusio n. There is no acute osseous abnormality. Likely interposition of bowel between the left hemidiaphragm a nd the spleen. There appears to be an IVC filter. IMPRESSION: No acute intrathoracic abnormality. POS: [facility]
[2018-08-31 15:18] LABS: #Eosinphils 0.2 thou/uL (0.0-0.7); #Lymphocytes 0.9 thou/uL (1.20-3.40); #Monocytes 0.3 thou/uL (0.11-0.59); #Neutrophils 1.9 thou/uL (1.40-6.50); %Basophils 0.8 % (0.0-1.0); %Eosinophils 5.9 % (0.0-10.0); %Lymphocytes 28.2 % (21.0-51.0); %Monocytes 8.2 % (0.0-10.0); %Neutrophils 56.9 % (42.0-75.0); Hemoglobin 12.6 g/dL (14.0-18.0); Mean Corpuscular HGB CONC 31.5 g/dL (32.0-36.0); Mean Corpuscular Hemoglobin 29.7 pg (27.0-31.0); Mean Corpuscular Volume 94.2 fL (78.0-98.0); Mean Platelet Volume 8.2 fL (7.4-10.4); Platelet Count 125 thou/uL (130-400); RBC Distribution Width 14.3 % (11.5-14.5); Red Blood Cell (RBC) Count 4.25 mill/uL (4.70-6.10); White Blood Cell (WBC) Count 3.3 thou/uL (4.8-10.8)
[2018-08-31 15:40] LABS: ALT (SGPT) 12 U/L (8-55); AST (SGOT) 16 U/L (5-34); Albumin 4.2 g/dL (3.4-4.8); Alkaline Phosphatase 75 U/L (40-150); Anion Gap 11 mmol/L (10-20); BUN (Urea Nitrogen) 21 mg/dL (8.4-25.7); Bilirubin, Total 0.7 mg/dL (0.2-1.2); CK (CPK) 37 U/L (30-200); Calc. Creatinine Clearance 0 mL/min (70-130); Calcium 10.1 mg/dL (7.8-10.44); Carbon Dioxide 23 mmol/L (23-31); Chloride 104 mmol/L (98-107); Estimated GFR-MDRD 57; Globulin 3.2 g/dL (2.4-3.5); Glucose 146 mg/dL (83-110); Lipase 36 U/L (8-78); Potassium 4.3 mmol/L (3.5-5.1); Protein, Total 7.4 g/dL (5.8-8.1); Sodium 134 mmol/L (136-145)
[2018-08-31] MEDS ORDERED: Nitroglycerin 2% Ointment 1 INCH/1 GM Packet ONE (17:15)
[2018-08-31] MEDS ORDERED: Aspirin 325 MG TAB ONE (17:15)
[2018-08-31] MEDS ORDERED: Pantoprazole 40 MG VIAL ONE (18:55)
--- NOTE | 2018-09-01 04:35 | SS ---
DATE OF ADMISSION: 08/31/2018 DATE OF DISCHARGE: 08/31/2018 PRIMARY CARE PHYSICIAN: Keaton Mohan MD PRIMARY BILL PEDDLER: Denny Dixon MD CHIEF COMPLAINT: Chest pressure. HISTORY OF PRESENT ILLNESS: This is an 83-year-old male with a known history of coronary artery disease with previous CABG, after which he had not had any problems. He started getting some chest pressure symptoms over the last week. It started getting severe about 2 days ago, started around 7 o'clock at night, lasted until about 9, eventually got better after he took some nitroglycerin. He did have some nausea at that time. The patient had the symptoms again the next day. He did have a stress test with Dr. Dixon, but he did not know the results of it, and then got some later in the evening, eventually was able to go to sleep. Today, he went to his primary care doctor's office, where his blood pressure was elevated, and they were trying to find the results of the stress test, but they were not able to get hold of them. After leaving the office, he did start getting the chest pressure again in the center of his chest, not radiating anywhere, no associated symptoms, and so he came into the emergency room about an hour later. He did seem to get better with nitro paste in the emergency room and now he is asymptomatic. The patient does have a history of gastroesophageal reflux disease and has had a partial gastrectomy, but just takes an occasional rmcj-[id number]-[id number] med for this when needed. I did talk to Dr. Dixon on the phone after I was called for the patient's admission. Dr. Dixon reviewed the stress test, said that it was normal, and he does not think this is cardiac pain, most likely this is due to his reflux disease, but recommended the patient should go ahead and follow up in his clinic in 1 week. I talked to the patient about this, and after learning of the stress test results, he was comfortable going home. I will put him on a proton pump inhibitor, though we are giving him a dose of that in the ER and then sending a prescription for him over to his pharmacy. PAST MEDICAL HISTORY: 1. Coronary artery disease, status post CABG. 2. Peripheral vascular disease. 3. Hypothyroidism. 4. Hypertension. 5. Dyslipidemia. 6. Benign prostatic hyperplasia. 7. Previous peptic ulcer disease in the distant past, status post partial gastrectomy. 8. Chronic kidney disease, stage 3. 9. Transient ischemic attack history. 10. Symptomatic bradycardia, status post pacemaker. 11. Intermittent SIADH with hyponatremia. 12. Melanoma, status post excision. PAST SURGICAL HISTORY: 1. Coronary artery bypass grafting. 2. Cardiac stent placed in the circumflex artery. 3. Abdominal aortic aneurysm repair. 4. Pacemaker placement. 5. Left foot surgery. 6. Left wrist surgery. 7. Appendectomy. 8. Partial gastrectomy. 9. Left [id number]-[id number] amputation. SOCIAL HISTORY: The patient is , lives with his , who is present in the room. No history of tobacco, alcohol or illicit drug use. He is very active and walks daily. FAMILY HISTORY: Significant for coronary artery disease in his father, who at the age of 87, and a brother with coronary artery disease. ALLERGIES: NO KNOWN DRUG ALLERGIES, THOUGH HE HAS HAD SOME ADVERSE AFFECTS TO METOPROLOL APPARENTLY IN THE PAST. HOME MEDICATIONS: 1. Amlodipine 5 mg at night. 2. Aspirin 81 mg daily. 3. Carvedilol 6.25 mg daily. 4. Vitamin D3 at night. 5. Plavix 75 mg at night. 6. Vitamin B12 1000 mcg daily. 7. Ferrous sulfate 325 mg once a week. 8. Finasteride 5 mg at night. 9. Gabapentin 300 mg at night. 10. Levothyroxine 25 mcg daily. 11. Lisinopril 5 mg twice a day. 12. Lorazepam 0.5 mg twice a day. 13. Sublingual nitroglycerin as needed. 14. Rosuvastatin 20 mg daily. 15. Tamsulosin 0.4 mg at night. 16. Coenzyme Q10 200 mg twice a day. REVIEW OF SYSTEMS: CONSTITUTIONAL: No fevers. No chills. No weight changes. EYES: He has occasional blurred vision. Nothing significant right now. ENT: Occasional runny nose. No sore throat. CARDIOVASCULAR: He has a chest pressure. No pain. No palpitations or racing heart. PULMONARY: No coughing, wheezing or shortness of breath. GASTROINTESTINAL: He has a little bit of stomach cramping and some loose stool earlier in the day. He had nausea a couple of days ago, none currently. No vomiting. GENITOURINARY: No dysuria or hematuria. MUSCULOSKELETAL: No muscle aches or joint pains. SKIN: No rashes or lesions noted. NEUROLOGIC: No numbness, tingling or focal weakness. PHYSICAL EXAMINATION: VITAL SIGNS: Blood pressure 175/70, pulse 64, respirations 20, temperature 97.9, and O2 saturation 100% on room air. GENERAL: This is a well-developed, thin male, in no acute distress. HEENT: Pupils equal, round, and reactive to light. Oropharynx clear without lesions, erythema or exudate. NECK: Supple. No lymphadenopathy. No thyroid nodules or enlargement. No JVD. HEART: Regular rate and rhythm. No murmurs, rubs or gallops. LUNGS: Clear to auscultation bilaterally. No wheezes, crackles or rhonchi. ABDOMEN: Soft and nontender to palpation. Normoactive bowel sounds. No hepatosplenomegaly or other masses. EXTREMITIES: No clubbing, cyanosis or edema. He does have a left hzwtj-tql-mrun amputation. SKIN: No rashes or other lesions. NEUROLOGIC: Intact strength and sensation in all extremities. No facial droop. LABORATORY DATA: CBC with a white blood cell count of 3.3, hemoglobin of 12.6, hematocrit of 40.0, and platelet count of 125. Complete metabolic panel is notable for sodium of 134 and glucose of 146. Troponin is negative. EKG shows atrial paced rhythm, no ST-segment changes. Chest x-ray, I did review the chest x-ray done in the emergency room along with the radiologist's report, it shows no acute cardiopulmonary process. ASSESSMENT: Chest pressure, likely gastrointestinal in origin. The patient had a negative stress test, negative cardiac markers, and negative EKG. We will give the patient a dose of Protonix here in the emergency room and will discharge him home to follow up with Dr. Dixon in the clinic next week. He can continue using his nitroglycerin as needed and continue all of his other home medicines along with Protonix 40 mg daily. Job ID: [id number]
== END 2018-08-31 19:12 | disposition home or self-care (01) ==
LOC: ERS 14:43
DX: R07.9 Chest pain, unspecified (principal); E03.9 Hypothyroidism, unspecified; I73.9 Peripheral vascular disease, unspecified; N40.0 Benign prostatic hyperplasia without lower urinary tract symptoms; E78.5 Hyperlipidemia, unspecified; I25.2 Old myocardial infarction; I71.4 Abdominal aortic aneurysm, without rupture; F41.9 Anxiety disorder, unspecified; Z79.899 Other long term (current) drug therapy; Z79.82 Long term (current) use of aspirin
CPT/HCPCS: 71045; 80053; 82550; 83690; 84484; 85025; 93005; 96374; C9113

== ENCOUNTER 2018-12-01 08:14 | Outpatient (CLI) | payer MEDICARE, OTHER ==
--- NOTE | 2018-12-01 10:37 | ULT ---
ABDOMINAL ULTRASOUND COMPLETE: Date: 12/01/18 HISTORY: Epigastric pain. FINDINGS: Liver echogenicity is somewhat coarse. The gallbladder demonstrates some nodular shadowing debris con cerning for gallstones versus thick nodular sludge. I favor this being gallstones. No gallbladder wal l thickening or pericholecystic fluid. Common bile duct dilated at 1.0 cm. Atherosclerotic changes ar e noted of the abdominal aorta with a distal abdominal aortic aneurysm containing an endostent. AP di mension of the aneurysm sac approximates 4.6 cm. The spleen is borderline in size and somewhat hetero geneous echogenic. Left renal cyst up to 1.5 cm in size. No renal hydronephrosis. No abscess or abnor mal fluid collection. IMPRESSION: Somewhat coarse liver echogenicity. Probable gallstones without acute cholecystitis. Dilated common b ile duct at 1.0 cm without significant intrahepatic ductal dilatation. Lower abdominal aortic aneurys m with an endostent. Borderline size spleen, which is somewhat heterogeneously echogenic. Several lef t renal cysts without renal hydronephrosis. Other findings as above. POS: [facility]
== END 2018-12-01 08:15 | disposition home or self-care (01) ==
LOC: ULT 08:14
PROVIDERS: ATTEND Family Medicine
DX: R10.13 Epigastric pain (principal); K83.8 Other specified diseases of biliary tract; I71.4 Abdominal aortic aneurysm, without rupture; I70.0 Atherosclerosis of aorta; N28.1 Cyst of kidney, acquired; R93.2 Abnormal findings on diagnostic imaging of liver and biliary tract; R93.5 Abnormal findings on diagnostic imaging of other abdominal regions, including retroperitoneum; Z95.828 Presence of other vascular implants and grafts
CPT/HCPCS: 76700

== ENCOUNTER 2018-12-02 21:24 | Emergency (ER) | payer MEDICARE, OTHER ==
--- NOTE | 2018-12-02 22:09 | RAD ---
EXAM: CHEST ONE VIEW HISTORY: Cough. Elevated blood pressure and rhinorrhea. COMPARISON: 08/31/2018 FINDINGS: Postsurgical changes related to CABG are again noted. Dual-lead left subclavian cardiac pacemaking de vice remains in place. The cardiac silhouette and pulmonary vasculature are within normal limits. There is mild elevation of the right hemidiaphragm. There is biapical pleural thickening noted. The l ungs are otherwise clear. Mild degenerative changes are seen in the spine. Vascular calcifications are again seen in the thoracic aorta, and there is again partial visualization of an abdominal aortic stent graft in place overlying the midline upper abdomen. IMPRESSION: No acute cardiopulmonary process.
== END 2018-12-02 22:57 | disposition home or self-care (01) ==
LOC: ERS 21:24
DX: J20.9 Acute bronchitis, unspecified (principal); I10 Essential (primary) hypertension; I25.2 Old myocardial infarction
CPT/HCPCS: 71045; 93005; J7620

== ENCOUNTER → 2019-02-09 | Day surgery (SDC) | payer MEDICARE, OTHER ==
[2019-02-08 08:55] VITALS: BMI 19.5
[~2019-02-09] MED LIST changes: -Iopamidol 370 76% 50 ML VIAL FS ONE; -Lidocaine 1% (PF) 30 ML VIAL ONE; +Lidocaine 1% PF 5 ML VIAL ONE; +PROPOFOL 200 MG/20 ML VIAL ONE
--- NOTE | 2019-02-09 17:16 | OP ---
DATE OF PROCEDURE: 02/09/2019 PREPROCEDURE DIAGNOSES: 1. Worsening dysphagia. 2. Prior history of evaluation for dysphagia in 2017. He had equivocal response to dilatation at that time and was sent to Speech Pathology, he does not recall that. I think his dysphagia is probably related to prior stroke. His seems to think the dilatation previously helped. POSTPROCEDURE DIAGNOSES: 1. Normal esophagus with no evidence of strictures. Normal cervical esophagus and pharynx with no overt lesions. 2. Empiric dilatation with 60-Stateless Simmons dilator, which is 20 mm, showed no effect on second look. 3. He has had anatomy consistent with previous partial gastrectomy, which appears normal. RECOMMENDATIONS: Referral to Speech Pathology. Follow up in my office p.r.n. This is a neurologic effect of his prior stroke. ANESTHESIA: TIVA. PROCEDURE IN DETAIL: The patient was informed of the risks, benefits, and possible complications of endoscopy including perforation, bleeding, reaction to medication, and aspiration. Informed consent was obtained. The patient was brought to endoscopy suite, where he was sedated in gradual fashion. Once he was comfortable, a bite block was placed inside the orifice. The endoscope was advanced through the esophagus, stomach, and second and third portions of the duodenum and slowly removed. The oropharynx and the pharyngeal area appeared normal. There was no other evidence of prominent cricopharyngeal bar or proximal esophageal strictures. The esophagus appeared normal throughout its length with no evidence of strictures or hernias. The stomach was entered, notable for previous partial gastrectomy state with Billroth II type anastomosis with both afferent and efferent limbs appeared normal to the main anastomosis. The scope was removed. A 60-Stateless dilator was used to dilate the proximal esophagus, where the patient relates his symptoms. Second-look showed no effect. The scope was removed. The patient was brought to recovery room in stable condition. Findings were discussed with the patient's as well as recommendations. Job ID: [id number]
== END ==
LOC: SDC 08:29
PROVIDERS: ATTEND Internal Medicine Gastroenterology
PROC: 0DJ08ZZ Inspection of Upper Intestinal Tract, Via Natural or Artificial Opening Endoscopic (ICD-10-PCS; principal; 2019-02-09)
PROC: 0D757ZZ Dilation of Esophagus, Via Natural or Artificial Opening (ICD-10-PCS; 2019-02-09)
DX: R13.12 Dysphagia, oropharyngeal phase (principal); K95.89 Other complications of other bariatric procedure; I25.10 Atherosclerotic heart disease of native coronary artery without angina pectoris; E78.00 Pure hypercholesterolemia, unspecified; I10 Essential (primary) hypertension; E03.9 Hypothyroidism, unspecified; Z95.1 Presence of aortocoronary bypass graft; Z79.82 Long term (current) use of aspirin; Z79.02 Long term (current) use of antithrombotics/antiplatelets; Z79.899 Other long term (current) drug therapy
CPT/HCPCS: J2001; J2704

== ENCOUNTER 2019-03-06 22:22 | Emergency (ER) | payer MEDICARE, OTHER | END 2019-03-06 23:02 | disposition home or self-care (01) | LOC: SCSER 22:22 | DX: K14.8 Other diseases of tongue (principal); E03.9 Hypothyroidism, unspecified; N40.0 Benign prostatic hyperplasia without lower urinary tract symptoms; E78.5 Hyperlipidemia, unspecified; E78.00 Pure hypercholesterolemia, unspecified; I10 Essential (primary) hypertension; I25.2 Old myocardial infarction; Z86.73 Personal history of transient ischemic attack (TIA), and cerebral infarction without residual deficits; F41.9 Anxiety disorder, unspecified; Z79.899 Other long term (current) drug therapy; Z79.82 Long term (current) use of aspirin; Z79.51 Long term (current) use of inhaled steroids | CPT/HCPCS: 99282 ==

== ENCOUNTER 2019-04-20 10:32 | Outpatient (CLI) | payer MEDICARE ==
[2019-04-20 12:34] LABS: Hemoglobin 11.4 g/dL (14.0-18.0); Mean Corpuscular HGB CONC 32.2 g/dL (32.0-36.0); Mean Corpuscular Hemoglobin 29.7 pg (27.0-31.0); Mean Corpuscular Volume 92.4 fL (78.0-98.0); Mean Platelet Volume 8.2 fL (7.4-10.4); Platelet Count 138 thou/uL (130-400); RBC Distribution Width 14.4 % (11.5-14.5); Red Blood Cell (RBC) Count 3.82 mill/uL (4.70-6.10); White Blood Cell (WBC) Count 3.4 thou/uL (4.8-10.8)
[2019-04-20 12:42] LABS: INR-International Normal Ratio 1.3; PTT 42.4 SEC (22.9-36.1); Prothrombin Time 16.1 SEC (12.0-14.7)
[2019-04-20 12:54] LABS: Anion Gap 10 mmol/L (10-20); BUN (Urea Nitrogen) 24 mg/dL (8.4-25.7); Calc. Creatinine Clearance 0 mL/min (70-130); Calcium 9.5 mg/dL (7.8-10.44); Carbon Dioxide 24 mmol/L (23-31); Chloride 104 mmol/L (98-107); Estimated GFR-MDRD 47; Glucose 99 mg/dL (83-110); Potassium 4.4 mmol/L (3.5-5.1); Sodium 134 mmol/L (136-145)
[2019-04-20 12:55] LABS: Bilirubin Negative (Negative); Blood, Urine Negative (Negative); Clarity Clear (Clear); Glucose, Urine (Dipstick) 30 mg/dL (Negative); Leukocyte 75 Leu/uL (Negative); Nitrite Negative (Negative); Protein, Urine (Dipstick) Negative (Neg-Trace); RBC/HPF 0-3 HPF (0-3); Squamous Epithelial 0-3 HPF (0-3); Urobilinogen Normal mg/dL (Less than 2)
[2019-04-20 13:02] LABS: Bacteria/HPF 2+ HPF (None Seen)
--- NOTE | 2019-04-20 18:52 | EKG ---
Test Reason : Blood Pressure : / mmHG Vent. Rate : 066 BPM Atrial Rate : 066 BPM P-R Int : 156 ms QRS Dur : 092 ms QT Int : 396 ms P-R-T Axes : 091 057 049 degrees QTc Int : 415 ms Electronic atrial pacemaker When compared with ECG of 02-DEC-2018 21:53, No significant change was found Confirmed by PEG FOSS, DR. Jules ([id number]) on 04/20/2019 6:51:58 PM Referred By: MELVA Confirmed By:DR. Jorge A RUVALCABA MD
== END 2019-04-20 10:33 | disposition home or self-care (01) ==
LOC: LABBT 10:32
PROVIDERS: ATTEND Urology
DX: Z01.818 Encounter for other preprocedural examination (principal); N40.1 Benign prostatic hyperplasia with lower urinary tract symptoms; R39.12 Poor urinary stream
CPT/HCPCS: 80048; 81001; 85027; 85610; 85730; 87077; 87086; 87186; 93005; 93010

== ENCOUNTER 2019-04-27 08:47 | Inpatient (IN) | payer MEDICARE, OTHER ==
[2019-04-27] MEDS ORDERED: Levofloxacin 500 mg/D5W 100 ml Premix Bag ONE (09:57)
[2019-04-27] MEDS ORDERED: Phenylephrine 2.5% Ophth Soln 5 ML BOT ONE (11:15)
[2019-04-27] MEDS ORDERED: PHENYLEPHRINE-NS 100 MCG/ML 10 ML SYRINGE ONE (11:16)
[2019-04-27] MEDS ORDERED: methylPREDNISolone Sod Succ 40 MG VIAL IVP SCH (11:30)
[2019-04-27 11:36] LABS: Actual Bicarbonate (HCO3a) 21.9 mEq/L (22-28); Base Excess (BEa) -3.7 mEq/L (-2.0 to +3.0); CO2 Tension 41.7 mmHg (35.0-45.0); Calcium, Ionized 1.21 mmol/L (1.12-1.30); Carboxyhemoglobin (COHb) 1.2 gm% (0.0-3.0); Hemoglobin (Hb) 10.9 g/dL (14.0-18.0); pH, Arterial 7.34 (7.35-7.45)
[2019-04-27 11:38] LABS: O2 Tension (PaO2) 53.3 mmHg (> 60.0)
[2019-04-27 11:39] LABS: Puncture Site RRA
--- NOTE | 2019-04-27 11:39 | RAD ---
XR Chest 1 View History: Hypoxia Comparison: Radiograph November 2018 Findings: Subtle nodule projects over the left lung base likely a prominent nipple shadow. Dual-lead pacer is in place. Multiple midline sternotomy wires. Mild vascular calcifications. No acute osseous abnormality. Impression: No acute thoracic abnormality.
[2019-04-27] MEDS ORDERED: diphenhydrAMINE 50 MG/ML VIAL IVP SCH (12:00)
[2019-04-27 13:48] VITALS: BMI 16.8
[2019-04-27 13:50] VITALS: TEMP 97.8
--- NOTE | 2019-04-27 14:35 | PRG ---
HISTORY AND PHYSICAL DATE OF SERVICE: 04/27/2019 SERVICE: Pulmonary medicine. REASON FOR CONSULTATION: ICU patient. HISTORY OF PRESENT ILLNESS: The patient is an 84-year-old white male with no past medical history significant for lung problems. He is on room air out of hospital. Yet he has significant cardiac disease. Either way, he is being considered for a procedure. He presented in his usual state of health to today stay. At that location, IV was placed without incident. Twenty or thirty minutes later, he got his premedication with Levaquin. Shortly following the initiation of this infusion, he dropped his blood pressures, became diaphoretic, short of breath, and started having onset of chest discomfort. He had a low blood pressure because lack of perfusion to the occipital cortex, and he had lack of vision. He became presyncopal. He was given phenylephrine, and some steroids. The infusion was immediately aborted. The surgical procedure is going to be postponed. Either way, he was in a rough state for about 25 to 30 minutes before he started having significant recovery. Currently, he has returned to his usual state of health. He denies any current fevers, chills, nausea, vomiting, chest discomfort, or other issues. PAST MEDICAL HISTORY: 1. Coronary artery disease. 2. Peripheral vascular disease. 3. Hypertension. 4. Dyslipidemia. 5. Hypothyroidism. 6. History of head and neck cancer, status post radiation therapy. 7. History of peptic ulcer disease. PAST SURGICAL HISTORY: 1. Amputation, left leg. 2. Partial gastrectomy. 3. Pacemaker placement. 4. Abdominal aortic graft. 5. Vascular surgery on the leg. 6. Coronary artery bypass graft. 7. EGD with dilation. FAMILY HISTORY: Noncontributory. SOCIAL HISTORY: He is a lifelong nonsmoker. Denies any alcohol, tobacco, or illicit drugs. He has no exposure to chemicals, dust, asbestos, or tuberculosis. ALLERGIES: LEVAQUIN (NEW). REVIEW OF SYSTEMS: General; head, ears, eyes, nose, throat; cardiovascular; respiratory; GI; ; musculoskeletal; neurologic; and skin are negative except as mentioned in the HPI. PHYSICAL EXAMINATION: VITAL SIGNS: Afebrile, pulse 60, blood pressure 130/71, respirations 12, saturation 100%, currently on room air. GENERAL: The patient is awake and alert, in no apparent distress. LUNGS: Wonderful air entry with no prolonged expiratory phase, wheezing, crackles, or rhonchi present. HEART: Normal rate. Regular. ABDOMEN: Soft, nontender, nondistended. Bowel sounds are positive. MUSCULOSKELETAL: No cyanosis or clubbing. No pitting in the bilateral lower extremities. NEUROLOGIC: Grossly nonfocal. LABORATORY DATA: PH 7.34, pCO2 42, PO2 53 when he was on simple face mask. Glucose 117. DIAGNOSTIC STUDIES: Chest x-ray demonstrates no acute cardiopulmonary abnormality. There was minimal hyperexpansion of bilateral lung heart. ASSESSMENT: 1. Anaphylaxis with hypotension, resolved. 2. Levaquin allergy, new diagnosis. 3. Chronic systolic and diastolic heart failure. DISCUSSION AND PLAN: At this point, the patient has essentially returned to his usual state of health. He can be discharged on a 3-day course of prednisone. His surgical procedure will be rescheduled for some future time. When he leaves the ICU, he will have no further requirements for inpatient Pulmonary or Critical Care opinion, and I will sign off. Please call with additional questions or concerns through time. 70 minutes have been devoted to this patient in various activities. I personally reviewed all imaging studies and laboratory data noted within this document. For fifty percent of this time, I was interacting with the patient at the bedside or coordinating care with the care team. For the remainder of the time I was immediately available to the patient in the hospital unit. Job ID: [id number] [id number]
--- NOTE | 2019-04-27 19:10 | CON ---
DATE OF CONSULTATION: CONSULTING PHYSICIAN: Dr. Rudolph. HISTORY OF PRESENT ILLNESS: Mr. Peoples is an 84-year-old male with a significant cardiac history of CABG and pacemaker placement with coronary artery disease, who also has BPH and significant urinary symptoms. He is adequately managed on medications; although, he still has some difficulty with urination. We discussed UroLift and had obtained appropriate cardiac clearance. He was scheduled for the procedure and has come in today for this procedure. In preparation, he has already started his ampicillin, antibiotics which has resulted in improvement in his urine, which previously had been growing Enterococcus. In preparation for his surgery, we gave him Levaquin, which started infusions in Day Stay. Unfortunately, the patient appears to have had a reaction to this and became hypotensive and started complaining of chest pain and shortness of breath. A Code Green was called. The patient was placed into Trendelenburg. Anesthesia did see the patient and gave him phenylephrine to bring his blood pressure up. I ordered Solu-Medrol and Benadryl as part of a Code Green to help with the potential allergic reaction. A lab panel was drawn for CBC, CMP, and cardiac enzymes. The patient started improving immediately with IV fluids and the phenylephrine as well as the Solu-Medrol, which greatly improved the patient's blood pressure from systolic of 60s up to the 90s and then subsequently to about 119 once he had been taken to the CCU. At the time of visiting with the patient after the Code Green, he stated he was feeling much better. He was no longer complaining of chest pain or shortness of breath. ALLERGIES: NONE. HOME MEDICATIONS: 1. Cranberry tablets. 2. Aspirin, currently on hold. 3. Iron. 4. Finasteride. 5. Tamsulosin. 6. Gabapentin. 7. Lisinopril. 8. Vitamin D. 9. Levothyroxine. 10. Isosorbide mononitrate. 11. Plavix, currently on hold. 12. Carvedilol. 13. Albuterol. 14. Protonix. 15. Rosuvastatin. PAST MEDICAL HISTORY: 1. Carotid artery disease. 2. Coronary artery disease. 3. Dyslipidemia. 4. Peripheral arterial disease. 5. Abdominal aortic aneurysm. 6. BPH. PAST SURGICAL HISTORY: 1. Vagotomy. 2. Antrectomy. 3. Lymph node dissection. 4. Radiation therapy. 5. Appendectomy. 6. Tonsillectomy. 7. Heel surgery. 8. Atherectomy with grafting of the peripheral vasculature. 9. Cardiac stents. 10. CABG in 2015. 11. Endovascular aneurysm repair. 12. Pacemaker placement. SOCIAL HISTORY: The patient is . He no longer smokes. He denies any illicit drug use. FAMILY HISTORY: Significant for cardiac disease. REVIEW OF SYSTEMS: A 12-point review of systems reviewed and currently negative other than what was commented on the HPI, specifically his chest pain and shortness of breath have now resolved. PHYSICAL EXAMINATION: VITAL SIGNS: Current vitals; temperature 97.8, blood pressure 120/55, respirations 22, pulse rate 62, and saturation 100% on room air. GENERAL: No apparent distress, communicating, and alert. CARDIOVASCULAR: Regular rate and rhythm. Normal S1 and S2. ABDOMEN: Soft, nontender, and nondistended. Positive bowel sounds. HEENT: Normocephalic and atraumatic. Pupils are symmetric and round. Trachea midline. SKIN: Warm and dry. No rash or lesions. Good turgor. : Nonfocal. No lesions. No blood at the meatus. Testes are bilaterally descended. EXTREMITIES: No clubbing, cyanosis, or edema. ABDOMEN: Soft, nontender, and nondistended. Positive bowel sounds. No organomegaly. No rebound or guarding tenderness. CHEST: No increased work of breathing. Symmetric expansion of the lungs. Few scattered wheezes. NEUROLOGIC: Cranial nerves 2 through 12 grossly intact. No focal or sensorimotor deficits identified. MUSCULOSKELETAL: No joint deformities or joint erythema noted. Full range of motion. LABORATORY EVALUATION: The full set of labs are in the [facility] system, which I have reviewed. Of note, the patient had an ABG done, which demonstrates pO2 of 53 at the time of his code green, saturations currently normal. The cardiac enzymes, CBC, and CMP have been canceled. ASSESSMENT AND PLAN: An 84-year-old male with Code Green called likely secondary to anaphylactic reaction from Levaquin administration. This probably resulted in chest tightness and difficulty breathing, resulting in chest strain and possible cardiac strain. He seems to be doing a lot better now. I would no longer give this patient any kind of fluoroquinolones in the future. I have told him he should continue to finish off his ampicillin to treat the Enterococcus, which is in his urine at home. His UroLift has been canceled for now. I would also request that he restart his aspirin and Plavix to prevent any type of cardiac thrombosis or coronary thrombosis. He is scheduled to see me next week in the office. At which point, we will discuss any future plans for consideration of doing the UroLift procedure again in the future without fluoroquinolones. If he decides he wants to do this, we will reschedule him in May. Otherwise, if he decides against doing any further procedures, then he will just remain on Flomax and finasteride indefinitely. Job ID: [id number]
--- NOTE | 2019-04-28 00:19 | DIS ---
DATE OF ADMISSION: 04/27/2019 DATE OF DISCHARGE: 04/27/2019 SERVICE: Pulmonary Critical Care. CONSULTS: Urology. PROCEDURES: None. HOSPITAL COURSE AND BRIEF SUMMARY: The patient was placed in the ICU for observation after an anaphylactic episode following administration of levofloxacin. His blood pressures were low, he had onset of chest discomfort immediately following administration of this antibiotic. He was appropriately given some phenylephrine, and steroids. He was tucked into the ICU for observation, but rapidly improved. He returned to his usual state of health within 30 minutes, and had stable vital signs. Urology is not planning on doing the procedure during this hospital stay and has requested the patient to follow up in clinic with his already scheduled postop appointment, and they will decide when the best time for the procedure will be. He has been counseled to return to the emergency department if he has any increasing difficulty with breathing or chest pain. DISCHARGE CONDITION: Stable. DISPOSITION: Home. MEDICATIONS: All home medications will be continued. We will add a 2-day course of 40 mg of prednisone. DIET: Regular. ACTIVITY: As tolerated. FOLLOWUP: The patient will return to clinic to see Dr. Rudolph as previously directed for his routine postop appointment. He will avoid levofloxacin and any fluoroquinolones at any point in the future. His allergy list has been updated to reflect the severity of this reaction. Job ID: [id number] [facility]
[2019-04-28] MEDS ORDERED: predniSONE 20 MG TAB PO SCH (08:00)
[2019-04-28] MEDS ORDERED: FLU VACC TS2019-20(65YR UP)/PF 180 MCG/0.5 ML SYRINGE IM ONE (09:00)
--- NOTE | 2019-04-30 11:38 | EKG ---
Test Reason : CODE GREEN Blood Pressure : / mmHG Vent. Rate : 074 BPM Atrial Rate : 074 BPM P-R Int : 142 ms QRS Dur : 078 ms QT Int : 412 ms P-R-T Axes : 081 053 070 degrees QTc Int : 457 ms Normal sinus rhythm Nonspecific ST and T wave abnormality Abnormal ECG Confirmed by Piyush CONTEH ([id number]) on 04/30/2019 11:38:36 AM Referred By: Confirmed By:Piyush CONTEH
--- NOTE | 2019-04-30 11:38 | EKG ---
Test Reason : CHEST PAIN Blood Pressure : / mmHG Vent. Rate : 072 BPM Atrial Rate : 072 BPM P-R Int : 144 ms QRS Dur : 078 ms QT Int : 412 ms P-R-T Axes : 072 053 019 degrees QTc Int : 451 ms Normal sinus rhythm There appears to be atrial pacing or artifact. Nonspecific ST and T wave abnormality Abnormal ECG Confirmed by Piyush CONTEH ([id number]) on 04/30/2019 11:38:07 AM Referred By: Confirmed By:Piyush CONTEH
--- NOTE | 2019-05-31 18:30 | PQF ---
CHRIS VALENTINEZ BIBIJULIANNA [id number] [facility] -C10 [id number] CLINICAL DOCUMENTATION CLARIFICATION FORM: POST DISCHARGE Addendum to original discharge summary date: ____ Late entry note date: __ DATE: 05/31/19 ATTN: Dr. Vila Please exercise your independent, professional judgment in responding to the clarification form. Clinical indicators are provided on the bottom of this form for your review Please check appropriate box(s): [ X] Acute Respiratory Failure: [ X ] with Hypoxia[ ] with Hypercapnia [ ] Acute On Chronic Respiratory Failure: [ ] with Hypoxia [ ] with Hypercapnia [ ] Acute Respiratory Failure due to: (etiology) [ ] ARDS (Acute Respiratory Distress Syndrome) [ ] Chronic Respiratory Failure only [ ] with Hypoxia [ ] with Hypercapnia [ ] Hypoxia [ ] Shortness of breath [ ] Other diagnosis [ ] Unable to determine In addition, please specify: Present on Admission (POA): [ ] Yes [ ] No [ ] Unable to determine For continuity of documentation, please document condition throughout progress notes and discharge summary. Thank You. CLINICAL INDICATORS - SIGNS / SYMPTOMS / LABS -H&P- Dr. Vila Shortness of breath, on face mask -ABG 04/27 pH 7.34, pCO2 42, pO2 53, O2 sat sarbjit 84.6 L -Respiratory Panel 8L simple mask, 4L NC -Vital Signs 04/27 RR 22-30 RISK FACTORS History of HTN, CHF, CVA, CAD, CABG, pacemaker. TREATMENTS: -H&P- Dr. Vila On face mask ABG -Respiratory Panel 8L simple mask, 4L NC (This form is maintained as a part of the permanent medical record) 2014 [employer]. All Rights Reserved Chris [email or web address] [phone] MTDD
== END 2019-04-27 15:45 | disposition home or self-care (01) | DRG 915 ==
LOC: SDC 08:47 → CCU 11:43
PROVIDERS: ADMIT Urology; ATTEND Urology
DX: T88.6XXA Anaphylactic reaction due to adverse effect of correct drug or medicament properly administered, initial encounter (principal); J96.01 Acute respiratory failure with hypoxia; I50.42 Chronic combined systolic (congestive) and diastolic (congestive) heart failure; N40.1 Benign prostatic hyperplasia with lower urinary tract symptoms; I25.10 Atherosclerotic heart disease of native coronary artery without angina pectoris; E78.5 Hyperlipidemia, unspecified; E03.9 Hypothyroidism, unspecified; T36.8X5A Adverse effect of other systemic antibiotics, initial encounter; I95.2 Hypotension due to drugs; I11.0 Hypertensive heart disease with heart failure; R07.89 Other chest pain; Z86.73 Personal history of transient ischemic attack (TIA), and cerebral infarction without residual deficits; Z87.11 Personal history of peptic ulcer disease; Z95.0 Presence of cardiac pacemaker; Z95.1 Presence of aortocoronary bypass graft; Z88.6 Allergy status to analgesic agent; Z95.5 Presence of coronary angioplasty implant and graft; Z90.49 Acquired absence of other specified parts of digestive tract
CPT/HCPCS: 36416; 71045; 82805; 90471; 90662; 93005; 93010; 99214; G0008; G0463; J1956; J2920; J3370

== ENCOUNTER 2019-04-28 18:50 | Emergency (ER) | payer MEDICARE, OTHER ==
[2019-04-28 19:46] LABS: #Lymphocytes 0.6 thou/uL (1.20-3.40); #Monocytes 0.2 thou/uL (0.11-0.59); #Neutrophils 8.7 thou/uL (1.40-6.50); %Basophils 0.1 % (0.0-1.0); %Lymphocytes 5.8 % (21.0-51.0); %Monocytes 2.3 % (0.0-10.0); %Neutrophils 91.8 % (42.0-75.0); Hemoglobin 11.4 g/dL (14.0-18.0); Mean Corpuscular HGB CONC 32.2 g/dL (32.0-36.0); Mean Corpuscular Hemoglobin 29.1 pg (27.0-31.0); Mean Corpuscular Volume 90.4 fL (78.0-98.0); Platelet Count 130 thou/uL (130-400); Red Blood Cell (RBC) Count 3.93 mill/uL (4.70-6.10); White Blood Cell (WBC) Count 9.4 thou/uL (4.8-10.8)
--- NOTE | 2019-04-28 19:55 | RAD ---
EXAM: Chest one view: HISTORY: Chest pain, hypertension, headache COMPARISON: 12/02/2018 04/27/2019 FINDINGS: Postop midline sternotomy. Left ICD. Heart size: Within normal limits. Lungs: Clear of acute process. No evidence for pneumonia, pleural effusion, acute edema, or pneumothorax, or other significant acute process. IMPRESSION: No significant acute intrathoracic disease. Stable exam.
[2019-04-28 20:00] LABS: ALT (SGPT) 12 U/L (8-55); AST (SGOT) 16 U/L (5-34); Albumin 4.2 g/dL (3.4-4.8); Alkaline Phosphatase 68 U/L (40-110); Anion Gap 15 mmol/L (10-20); BUN (Urea Nitrogen) 25 mg/dL (8.4-25.7); Bilirubin, Total 0.4 mg/dL (0.2-1.2); Calc. Creatinine Clearance 0 mL/min (70-130); Calcium 9.7 mg/dL (7.8-10.44); Carbon Dioxide 23 mmol/L (23-31); Chloride 105 mmol/L (98-107); Estimated GFR-MDRD 50; Globulin 2.8 g/dL (2.4-3.5); Glucose 138 mg/dL (83-110); Potassium 4.5 mmol/L (3.5-5.1); Sodium 138 mmol/L (136-145)
[2019-04-28 22:31] LABS: Troponin I 0.027 ng/mL (< 0.028)
== END 2019-04-28 22:49 | disposition home or self-care (01) ==
LOC: SCSER 18:50
DX: I10 Essential (primary) hypertension (principal); E03.9 Hypothyroidism, unspecified; N40.0 Benign prostatic hyperplasia without lower urinary tract symptoms; E78.5 Hyperlipidemia, unspecified; E78.00 Pure hypercholesterolemia, unspecified; I25.10 Atherosclerotic heart disease of native coronary artery without angina pectoris; I25.2 Old myocardial infarction; F41.9 Anxiety disorder, unspecified; Z86.718 Personal history of other venous thrombosis and embolism; Z79.899 Other long term (current) drug therapy; Z79.82 Long term (current) use of aspirin
CPT/HCPCS: 36415; 71045; 80053; 84484; 85025; 93005

== ENCOUNTER 2019-05-04 11:26 | Outpatient (CLI) | payer MEDICARE, OTHER ==
--- NOTE | 2019-05-04 13:19 | MRI ---
CERVICAL SPINE MRI WITHOUT CONTRAST: DATE: 05/04/2019. COMPARISON: None. HISTORY: Neck pain and bilateral shoulder pain, left greater than right. TECHNIQUE: Multiplanar multisequence MR imaging of the cervical spine without contrast. FINDINGS: The sagittal STIR imaging demonstrates no focal area of osseous marrow edema. There is no significant anterolisthesis or retrolisthesis noted within the cervical spine. Foci of in creased T2 signal in the rachana suggests small vessel disease. Appealing coaxial interspace there is moderate degenerative change. The arterial flow void of the left vertebral artery is abnormal suggesting occlusion of the left vert ebral artery. C2-3: There is disc space narrowing and disc desiccation with no significant central canal or neural foraminal stenosis. C3-4: Disc space narrowing and disc desiccation noted with disc bulge. Severe central canal stenosis. Bilateral facet and uncovertebral osteophyte formation noted with severe bilateral neural foraminal stenosis. C4-5: There is disc space narrowing, disc desiccation, and disc bulge with moderate/severe central ca nal stenosis. Bilateral facet and uncovertebral osteophyte formation noted with severe left and mild/moderate right neural foraminal stenosis. C5-6: There is disc space narrowing, disc desiccation, and disc bulge with moderate/severe central ca nal stenosis. Facet and uncovertebral osteophyte formation causes severe bilateral neural foraminal stenosis, right greater than left. C6-7: There is degenerative endplate change with disc space narrowing and disc desiccation. There is bilateral facet hypertrophy. Mild central canal stenosis and mild bilateral neural foraminal stenosis. C7-T1: There is facet hypertrophy on the right with mild/moderate right neural foraminal stenosis. No significant central canal or left neural foraminal stenosis. No focal area of abnormal signal intensity identified within the cervical cord. IMPRESSION: Prominent multilevel degenerative change within the cervical spine. Occlusion of left vertebral arter y. Transcribed Date/Time: 05/04/2019 1:43 PM
== END 2019-05-04 11:27 | disposition home or self-care (01) ==
LOC: MRI 11:26
PROVIDERS: ATTEND Family Medicine
DX: M50.30 Other cervical disc degeneration, unspecified cervical region (principal); I65.02 Occlusion and stenosis of left vertebral artery; M47.812 Spondylosis without myelopathy or radiculopathy, cervical region
CPT/HCPCS: 72141

== ENCOUNTER 2019-06-01 10:50 | Outpatient (CLI) | payer MEDICARE, OTHER ==
--- NOTE | 2019-06-04 15:53 | RAD ---
Modified barium swallow with speech therapist: DATE: 06/01/2019 HISTORY: 84-year-old male with dysphagia, oropharyngeal phase, and feeding difficulties. FINDINGS: Penetration visualized with thin liquid swallow. Some residue in vallecula and piriform sinuses, with variable success of clearance upon repeat swallows.. No aspiration. See complete report by speech therapist. IMPRESSION: Pharyngeal dysphagia, at least mild, including penetration.
== END 2019-06-01 10:51 | disposition home or self-care (01) ==
PROVIDERS: ATTEND Internal Medicine Gastroenterology
DX: R13.12 Dysphagia, oropharyngeal phase (principal); R63.3 Feeding difficulties
CPT/HCPCS: 74230

== ENCOUNTER 2020-10-21 12:37 | Outpatient (CLI) | payer MEDICARE, OTHER | END 2020-10-21 12:38 | disposition home or self-care (01) | LOC: ULT 12:37 | PROVIDERS: ATTEND Surgery Vascular Surgery | DX: I73.9 Peripheral vascular disease, unspecified (principal) | CPT/HCPCS: 93922; 93923 ==

== ENCOUNTER 2021-03-26 19:30 | Outpatient (CLI) | payer MEDICARE, OTHER | END 2021-03-26 19:31 | disposition home or self-care (01) | LOC: SLEEPLAB 19:30 | PROVIDERS: ATTEND Family Medicine | DX: G47.33 Obstructive sleep apnea (adult) (pediatric) (principal); I25.10 Atherosclerotic heart disease of native coronary artery without angina pectoris; I11.9 Hypertensive heart disease without heart failure; R53.83 Other fatigue; R06.83 Snoring; F41.9 Anxiety disorder, unspecified | CPT/HCPCS: 95810 ==

== ENCOUNTER 2021-04-18 19:30 | Outpatient (CLI) | payer MEDICARE, OTHER | END 2021-04-18 19:31 | disposition home or self-care (01) | LOC: SLEEPLAB 19:30 | PROVIDERS: ATTEND Family Medicine | DX: G47.33 Obstructive sleep apnea (adult) (pediatric) (principal); R53.83 Other fatigue; I49.9 Cardiac arrhythmia, unspecified; R06.83 Snoring; F41.9 Anxiety disorder, unspecified; I10 Essential (primary) hypertension; I25.10 Atherosclerotic heart disease of native coronary artery without angina pectoris; E66.9 Obesity, unspecified; Z68.1 Body mass index [BMI] 19.9 or less, adult | CPT/HCPCS: 95811 ==

== ENCOUNTER 2021-05-23 21:02 | Inpatient (IN) | payer MEDICARE, OTHER ==
[2021-05-24 00:39] VITALS: BMI 18.6
[2021-05-24] MEDS ORDERED: Acetaminophen 650 MG Suppository PR PRN (01:23)
[2021-05-24] MEDS ORDERED: Ondansetron PF 4 MG/2 ML Vial IVP PRN (01:23)
[2021-05-24] MEDS ORDERED: Ondansetron ODT 4 MG TAB PO PRN (01:23)
[2021-05-24] MEDS ORDERED: Tamsulosin HCl 0.4 MG CAP PO SCH (02:45)
[2021-05-24] MEDS ORDERED: Finasteride 5 MG TAB PO SCH (03:30)
[2021-05-24] MEDS ORDERED: Lorazepam 0.5 MG TAB PO SCH (04:00)
[2021-05-24] MEDS: Acetaminophen 325 MG TAB PO PRN ×2 (06:13→12:12)
[2021-05-24 06:24] LABS: #Lymphocytes 0.7 thou/uL (1.20-3.40); #Monocytes 0.8 thou/uL (0.11-0.59); #Neutrophils 10.9 thou/uL (1.40-6.50); %Basophils 0.1 % (0.0-1.0); %Eosinophils 0.2 % (0.0-10.0); %Lymphocytes 5.5 % (21.0-51.0); %Monocytes 6.2 % (0.0-10.0); Hemoglobin 12.5 g/dL (14.0-18.0); Mean Corpuscular HGB CONC 32.9 g/dL (32.0-36.0); Mean Platelet Volume 7.7 fL (7.4-10.4); Platelet Count 195 thou/uL (130-400); Red Blood Cell (RBC) Count 3.78 mill/uL (4.70-6.10); White Blood Cell (WBC) Count 12.4 thou/uL (4.8-10.8)
[2021-05-24 06:44] LABS: Anion Gap 15 mmol/L (10-20); BUN (Urea Nitrogen) 21 mg/dL (8.4-25.7); Calc. Creatinine Clearance 36 mL/min (70-130); Calcium 9.2 mg/dL (7.8-10.44); Carbon Dioxide 17 mmol/L (23-31); Chloride 107 mmol/L (98-107); Glucose 120 mg/dL (83-110); Potassium 4.8 mmol/L (3.5-5.1); Sodium 134 mmol/L (136-145)
[2021-05-24] MEDS: Carvedilol 6.25 MG TAB PO SCH ×2 (08:28→20:25)
[2021-05-24] MEDS: Aspirin Chewable 81 MG TAB PO SCH (08:28)
[2021-05-24] MEDS: Pantoprazole 40 MG VIAL IVP SCH ×2 (09:40→20:41)
[2021-05-24] MEDS: Sodium Chloride 0.9% 1,000 ML IV SCH ×2 (09:40→20:41)
[2021-05-24] MEDS: Lorazepam 0.5 MG TAB PO PRN (15:50)
[2021-05-24] MEDS: Morphine 4 MG/ML VIAL SLOW IVP PRN ×2 (16:35→20:27)
[2021-05-24 19:11] LABS: Hemoglobin 11.3 g/dL (14.0-18.0); Platelet Count 185 thou/uL (130-400)
[2021-05-24] MEDS ORDERED: Sodium Chloride 0.9% 1,000 ML IV SCH (20:15)
[2021-05-24] MEDS: Lorazepam 0.5 MG TAB PO SCH (20:24)
[2021-05-24] MEDS: Benzonatate 100 MG CAP PO SCH (20:25)
[2021-05-24] MEDS: Gabapentin 300 MG CAP PO SCH (20:25)
[2021-05-24] MEDS: Finasteride 5 MG TAB PO SCH (20:26)
[2021-05-24] MEDS: Rosuvastatin 20 MG TAB PO SCH (20:26)
[2021-05-24] MEDS ORDERED: Non-Formulary Item 1 EACH (Benzonatate [Benzonatate] 200 MG Capsule) PO SCH (21:00)
[2021-05-24] MEDS: Tamsulosin HCl 0.4 MG CAP PO SCH (22:36)
[2021-05-25] MEDS: Sodium Chloride 0.9% 1,000 ML IV SCH ×3 (01:07→21:34)
[2021-05-25 02:27] LABS: Hemoglobin 11.4 g/dL (14.0-18.0); Platelet Count 177 thou/uL (130-400)
[2021-05-25] MEDS ORDERED: Non-Formulary Item 1 EACH (Levothyroxine Sodium [Levothyroxine] 50 MCG Capsule) PO SCH (06:00)
[2021-05-25 06:29] LABS: #Monocytes 1.2 thou/uL (0.11-0.59); #Neutrophils 7.7 thou/uL (1.40-6.50); %Basophils 0.2 % (0.0-1.0); %Lymphocytes 9.9 % (21.0-51.0); %Monocytes 11.7 % (0.0-10.0); %Neutrophils 78.2 % (42.0-75.0); Hemoglobin 10.8 g/dL (14.0-18.0); Mean Corpuscular HGB CONC 32.9 g/dL (32.0-36.0); Mean Corpuscular Hemoglobin 33.3 pg (27.0-31.0); Mean Platelet Volume 7.8 fL (7.4-10.4); Platelet Count 158 thou/uL (130-400); RBC Distribution Width 11.9 % (11.5-14.5); Red Blood Cell (RBC) Count 3.25 mill/uL (4.70-6.10); White Blood Cell (WBC) Count 9.8 thou/uL (4.8-10.8)
[2021-05-25 06:39] LABS: INR-International Normal Ratio 1.8; Prothrombin Time 21.1 sec (12.0-14.7)
[2021-05-25 06:47] LABS: ALT (SGPT) 12 U/L (8-55); AST (SGOT) 17 U/L (5-34); Albumin 2.8 g/dL (3.4-4.8); Alkaline Phosphatase 53 U/L (40-110); Anion Gap 9 mmol/L (10-20); BUN (Urea Nitrogen) 35 mg/dL (8.4-25.7); Bilirubin, Total 0.7 mg/dL (0.2-1.2); Calc. Creatinine Clearance 30 mL/min (70-130); Calcium 8.7 mg/dL (7.8-10.44); Carbon Dioxide 22 mmol/L (23-31); Chloride 108 mmol/L (98-107); Globulin 2.3 g/dL (2.4-3.5); Glucose 136 mg/dL (83-110); Potassium 4.4 mmol/L (3.5-5.1); Protein, Total 5.1 g/dL (5.8-8.1); Sodium 135 mmol/L (136-145)
[2021-05-25] MEDS: Levothyroxine Sodium 50 MCG TAB PO SCH (07:43)
[2021-05-25] MEDS: Lisinopril 10 MG TAB PO SCH (08:02)
[2021-05-25] MEDS: Amlodipine 5 MG TAB PO SCH (08:03)
[2021-05-25] MEDS: Cholecalciferol 1,000 UNITS (25 MCG) TAB PO SCH (08:03)
[2021-05-25] MEDS: Carvedilol 6.25 MG TAB PO SCH ×2 (08:04→21:18)
[2021-05-25] MEDS: Pantoprazole 40 MG VIAL IVP SCH ×2 (08:46→21:19)
[2021-05-25] MEDS ORDERED: Non-Formulary Item 1 EACH (Cholecalciferol (Vitamin D3) [Vitamin D3] 2,000 UNIT Capsule) PO SCH (09:00)
[2021-05-25] MEDS ORDERED: Non-Formulary Item 1 EACH (Lisinopril [Lisinopril] 30 MG Tablet) PO SCH (09:00)
[2021-05-25] MEDS ORDERED: PROPOFOL 200 MG/20 ML VIAL ONE (10:28)
[2021-05-25] MEDS ORDERED: Lidocaine 1% PF 5 ML VIAL ONE (10:28)
[2021-05-25] MEDS ORDERED: Ferrous Sulfate 325 MG TAB PO SCH (11:00)
[2021-05-25] MEDS: Cyanocobalamin (Vitamin B-12) 1,000 MCG TAB PO SCH (12:01)
[2021-05-25 15:42] LABS: Hemoglobin 10.7 g/dL (14.0-18.0); Platelet Count 176 thou/uL (130-400)
[2021-05-25] MEDS: Gabapentin 300 MG CAP PO SCH (21:16)
[2021-05-25] MEDS: Tamsulosin HCl 0.4 MG CAP PO SCH ×2 (21:17→21:18)
[2021-05-25] MEDS: Finasteride 5 MG TAB PO SCH (21:18)
[2021-05-25] MEDS: Rosuvastatin 20 MG TAB PO SCH (21:18)
[2021-05-25] MEDS: Lorazepam 0.5 MG TAB PO SCH (21:22)
[2021-05-25] MEDS: Benzonatate 100 MG CAP PO SCH (21:28)
[2021-05-26] MEDS: Levothyroxine Sodium 50 MCG TAB PO SCH (05:24)
[2021-05-26 06:54] LABS: #Lymphocytes 0.6 thou/uL (1.20-3.40); #Neutrophils 6.5 thou/uL (1.40-6.50); %Eosinophils 0.1 % (0.0-10.0); %Lymphocytes 7.8 % (21.0-51.0); %Monocytes 11.8 % (0.0-10.0); %Neutrophils 80.3 % (42.0-75.0); Hemoglobin 9.5 g/dL (14.0-18.0); Mean Corpuscular HGB CONC 33.4 g/dL (32.0-36.0); Mean Corpuscular Hemoglobin 33.6 pg (27.0-31.0); Mean Platelet Volume 7.9 fL (7.4-10.4); Platelet Count 155 thou/uL (130-400); Red Blood Cell (RBC) Count 2.84 mill/uL (4.70-6.10); White Blood Cell (WBC) Count 8.1 thou/uL (4.8-10.8)
[2021-05-26 08:22] LABS: Albumin 2.7 g/dL (3.4-4.8)
[2021-05-26 08:23] LABS: Chloride 108 mmol/L (98-107); Potassium 3.9 mmol/L (3.5-5.1); Sodium 135 mmol/L (136-145)
[2021-05-26 08:24] LABS: Calcium 8.3 mg/dL (7.8-10.44); Glucose 127 mg/dL (83-110)
[2021-05-26 08:25] LABS: Globulin 2.3 g/dL (2.4-3.5)
[2021-05-26 08:26] LABS: Bilirubin, Total 0.6 mg/dL (0.2-1.2); Carbon Dioxide 21 mmol/L (23-31)
[2021-05-26 08:27] LABS: Alkaline Phosphatase 52 U/L (40-110)
[2021-05-26 08:28] LABS: Calc. Creatinine Clearance 34 mL/min (70-130)
[2021-05-26 08:29] LABS: BUN (Urea Nitrogen) 33 mg/dL (8.4-25.7)
[2021-05-26 08:30] LABS: ALT (SGPT) 20 U/L (8-55); AST (SGOT) 31 U/L (5-34); Anion Gap 10 mmol/L (10-20)
[2021-05-26] MEDS: Lisinopril 10 MG TAB PO SCH (08:30)
[2021-05-26] MEDS: Amlodipine 5 MG TAB PO SCH (08:31)
[2021-05-26] MEDS: Aspirin Chewable 81 MG TAB PO SCH (08:31)
[2021-05-26] MEDS: Cholecalciferol 1,000 UNITS (25 MCG) TAB PO SCH (08:31)
[2021-05-26] MEDS: Carvedilol 6.25 MG TAB PO SCH ×2 (08:31→21:04)
[2021-05-26] MEDS: Sodium Chloride 0.9% 1,000 ML IV SCH (08:36)
[2021-05-26] MEDS: Pantoprazole 40 MG VIAL IVP SCH ×2 (09:21→21:52)
[2021-05-26] MEDS ORDERED: HYDROcodone/Acetaminophen 5/325 mg Tablet PO PRN (10:26)
[2021-05-26] MEDS: Morphine 4 MG/ML VIAL SLOW IVP PRN ×2 (10:45→21:05)
[2021-05-26] MEDS: Cyanocobalamin (Vitamin B-12) 1,000 MCG TAB PO SCH (10:46)
[2021-05-26] MEDS: Lorazepam 0.5 MG TAB PO PRN ×2 (14:42→21:04)
[2021-05-26] MEDS: Benzonatate 100 MG CAP PO SCH (21:01)
[2021-05-26] MEDS: Gabapentin 300 MG CAP PO SCH (21:02)
[2021-05-26] MEDS: Finasteride 5 MG TAB PO SCH (21:02)
[2021-05-26] MEDS: Rosuvastatin 20 MG TAB PO SCH (21:03)
[2021-05-26] MEDS: Lorazepam 0.5 MG TAB PO SCH (21:53)
[2021-05-27] MEDS ORDERED: Gabapentin 300 MG CAP PO SCH ×2 (01:00→21:00)
[2021-05-27] MEDS ORDERED: Sodium Chloride 0.9% 1,000 ML IV SCH (01:00)
[2021-05-27] MEDS: Acetaminophen 325 MG TAB PO PRN (01:01)
[2021-05-27] MEDS ORDERED: Vancomycin 1 GM in Premix Bag 1 BAG IVPB SCH (01:15)
[2021-05-27 01:22] LABS: Hemoglobin 11.5 g/dL (14.0-18.0); Mean Corpuscular HGB CONC 31.7 g/dL (32.0-36.0); Mean Platelet Volume 7.8 fL (7.4-10.4); Platelet Count 187 thou/uL (130-400); RBC Distribution Width 12.1 % (11.5-14.5); Red Blood Cell (RBC) Count 3.58 mill/uL (4.70-6.10); White Blood Cell (WBC) Count 10.2 thou/uL (4.8-10.8)
[2021-05-27 01:37] LABS: Anion Gap 13 mmol/L (10-20); BUN (Urea Nitrogen) 28 mg/dL (8.4-25.7); Calc. Creatinine Clearance 36 mL/min (70-130); Calcium 9.1 mg/dL (7.8-10.44); Carbon Dioxide 18 mmol/L (23-31); Chloride 105 mmol/L (98-107); Glucose 108 mg/dL (83-110); Potassium 3.9 mmol/L (3.5-5.1); Sodium 132 mmol/L (136-145)
[2021-05-27 01:45] LABS: Band 21 % (5-11); Lymphocytes 7 % (21-51); MDiff Complete? YES; Monocytes 6 % (0-10); Neutrophil 66 % (42-75)
[2021-05-27 03:07] VITALS: BP 115/54; TEMP 100.2
[2021-05-27] MEDS ORDERED: VANCOMYCIN 1.25 GM/250 ML BAG 1.25 GM in Premix Bag 1 BAG IVPB SCH (09:00)
[2021-05-27] MEDS ORDERED: Cefepime 1 GM in Sodium Chloride 0.9% 100 ML IVPB SCH (09:00)
[2021-05-28] MEDS ORDERED: Vancomycin HCl 750 MG in Sodium Chloride 0.9% 250 ML 250 ML IVPB SCH (01:00)
== END 2021-05-27 04:03 | disposition expired | DRG 393 ==
LOC: T4-A 05-24 00:01 → OBSVTOIN 05-24 01:23
PROVIDERS: ADMIT Student in an Organized Health Care Education/Training Program; ATTEND Family Medicine
PROC: 0W3P8ZZ Control Bleeding in Gastrointestinal Tract, Via Natural or Artificial Opening Endoscopic (ICD-10-PCS; principal; 2021-05-25)
PROC: 0DBA8ZX Excision of Jejunum, Via Natural or Artificial Opening Endoscopic, Diagnostic (ICD-10-PCS; 2021-05-25)
PROC: 0DB68ZX Excision of Stomach, Via Natural or Artificial Opening Endoscopic, Diagnostic (ICD-10-PCS; 2021-05-25)
PROC: 5A12012 Performance of Cardiac Output, Single, Manual (ICD-10-PCS; 2021-05-27)
DX: K55.019 Acute (reversible) ischemia of small intestine, extent unspecified (principal); K25.4 Chronic or unspecified gastric ulcer with hemorrhage; I46.9 Cardiac arrest, cause unspecified; Z20.822 Contact with and (suspected) exposure to COVID-19; N40.0 Benign prostatic hyperplasia without lower urinary tract symptoms; E03.9 Hypothyroidism, unspecified; I73.9 Peripheral vascular disease, unspecified; K80.20 Calculus of gallbladder without cholecystitis without obstruction; I25.10 Atherosclerotic heart disease of native coronary artery without angina pectoris; I11.0 Hypertensive heart disease with heart failure; I50.9 Heart failure, unspecified; R13.10 Dysphagia, unspecified; E78.5 Hyperlipidemia, unspecified; D53.9 Nutritional anemia, unspecified; Z89.512 Acquired absence of left leg below knee; Z87.11 Personal history of peptic ulcer disease; Z90.49 Acquired absence of other specified parts of digestive tract; Z85.89 Personal history of malignant neoplasm of other organs and systems; Z92.3 Personal history of irradiation; Z95.828 Presence of other vascular implants and grafts; Z88.1 Allergy status to other antibiotic agents; Z88.8 Allergy status to other drugs, medicaments and biological substances; Z95.1 Presence of aortocoronary bypass graft; Z95.810 Presence of automatic (implantable) cardiac defibrillator; Z79.899 Other long term (current) drug therapy; Z79.82 Long term (current) use of aspirin; Z79.02 Long term (current) use of antithrombotics/antiplatelets; Z79.890 Hormone replacement therapy; I25.2 Old myocardial infarction; Z85.828 Personal history of other malignant neoplasm of skin
CPT/HCPCS: 36415; 74177; 76705; 78227; 80048; 80053; 83605; 83690; 84484; 85025; 85610; 87040; 88305; 93005; A9537; C9113; J0500; J1650; J2270; J2704; J3010; J3370; J7050; Q0162; U0002